=== PATIENT | female | born 1965 | race Caucasian/White ===

== ENCOUNTER 2016-10-10 09:05 | Emergency (ER) | payer BC, OTHER ==
[~2016-10-10] VITALS: Ht 175.3 cm; Wt 102.5 kg
[~2016-10-10 09:05] MED LIST: ASPEC81 PO; CHOL100010 PO; GLC/500 PO; INDSR60 PO; PRVC10 PO
[2016-10-10 09:09] VITALS: TEMP 36.9; Ht 175.3 cm; Wt 102.5 kg
[2016-10-10] MEDS ORDERED: INDSR/120 PO (09:27)
[2016-10-10] MEDS ORDERED: PROP80TA2 PO (09:38)
[2016-10-10] MEDS ORDERED: PRVC/10 PO (09:40)
[2016-10-10] MEDS ORDERED: ONDANSETRON INJ 2 MG/ML 2 ML VIAL IV STA (09:47)
[2016-10-10] MEDS ORDERED: SODIUM CHLORIDE 0.9% 1000ML 1,000 ML IV STA (09:47)
[2016-10-10 09:56] LABS: URINE APPEARANCE CLEAR (CLEAR); URINE BILIRUBIN NEG (NEG); URINE COLOR YELLOW; URINE NITRITE NEG (NEG); URINE PH 8.5 (4.5-7.5); URINE SPECIFIC GRAVITY 1.018 (1.000-1.030); UROBILINOGEN NEG (NEG); ZZUR CULT IF INDIC CLEAN CATCH NO
[2016-10-10] MEDS ORDERED: CHOL1TAB42 PO (09:59)
[2016-10-10] MEDS ORDERED: OPTIRAY 320 IV PRN (10:00)
[2016-10-10 10:04] LABS: BASO % 0.4 %; BASO ABS # 0.02 K/uL (0-0.2); COMPLETE YES; EOS % 2.9 %; HEMATOCRIT 39.7 % (37-47); IG% 0.2 %; LYMPH % 27.8 %; LYMPH ABS # 1.52 K/uL (1.2-3.4); MEAN CELL VOLUME 87.6 fL (80-100); MEAN CORPUSCULAR HEMOGLOBIN 30.2 pg (25-34); MEAN CORPUSCULAR HGB CONC 34.5 g/dl (32-36); MEAN PLATELET VOLUME 11.2 fL (7.4-10.4); MONO % 6.6 %; NEUT % 62.1 %; PLATELET COUNT 277 K/uL (130-400); RED BLOOD COUNT 4.53 M/uL (4.2-5.4); WHITE BLOOD COUNT 5.46 K/uL (4.8-10.8)
[2016-10-10 10:08] LABS: MANUAL MICROSCOPIC REQUIRED? NO; REVIEW REQ? NO
[2016-10-10 10:29] LABS: ALT/SGPT 20 U/L (12-78); AST/SGOT 9 U/L (15-37); BLOOD UREA NITROGEN 13 mg/dl (7-18); BUN/CREATININE RATIO 16.5 (10-20); CARBON DIOXIDE 28 mmol/L (21-32); CHLORIDE 110 mmol/L (98-107); CREATININE 0.81 mg/dl (0.60-1.20); GLUCOSE 105 mg/dl (70-99); POTASSIUM 4.1 mmol/L (3.5-5.1); SODIUM 144 mmol/L (136-145)
[2016-10-10 10:31] LABS: ALKALINE PHOSPHATASE 96 U/L (45-117)
--- NOTE | 2016-10-10 12:53 | DIAGNOSTIC IMAGING REPORT ---
CT OF THE ABDOMEN AND PELVIS WITH CONTRAST CLINICAL HISTORY: Right lower quadrant abdominal pain. COMPARISON STUDY: CT of the abdomen November 16, 2009 and right upper quadrant ultrasound July 05, 2010. TECHNIQUE: Following IV administration of 95 mL of Optiray-320, axial images of the abdomen and pelvis were obtained from the lung bases to the proximal femurs. Images were reviewed in the axial, sagittal, and coronal planes. IV contrast was administered without complication. Oral contrast was administered. CT DOSE: 787.11 mGy.cm FINDINGS: Lung bases are clear. There is no pneumatosis, free air or portal venous gas. The liver, spleen, adrenal glands, kidneys and pancreas are normal. There is no peripancreatic or pericholecystic infiltration. There is no hydronephrosis. The caliber and wall thickness of small and large bowel are normal. The appendix is normal. Note is made of sigmoid diverticulosis without evidence for acute diverticulitis. There is no lymphadenopathy or ascites. There is no abscess. Skeletal structures are unremarkable. IMPRESSION: No acute process within the abdomen or pelvis. Normal appendix. Electronically signed by: Tristian Willingham M.D. 10/10/2016 12:52 PM Dictated Date/Time: 10/10/2016 12:47 PM
[2016-10-10 13:50] VITALS: BP 139/79; PULSE 65; O2SAT 95
--- NOTE | 2016-10-10 17:02 | EMERGENCY ROOM VISIT NOTE ---
History First contact with patient: 09:22 Chief Complaint: ABDOMINAL PAIN Stated Complaint: RIGHT SIDE PAIN & CRAMPS WITH RIGHT BACK PAIN Nursing Triage Summary: Patient c/o right pelvic pain RLQ and "it hit me so hard I doubled over at [employer] this morning and since then it's been coming and going and now it's radiating into my right lower back". Denies n/v/d today. Diarrhea once yesterday. When she had to pee "I barely peed " History of Present Illness The patient is a 51 year old female who presents to the Emergency Room with complaints of lower abdominal cramping that is moving from side to side. The patient denies any pain radiating into the back. The patient reports that she noticed the pain yesterday afternoon area she also had a single episode of diarrhea yesterday. The patient reports that as she was getting ready to go to work, she had a severe pain that doubled her over. She reports that the pain is now improving. The patient also reports worsening pain with ambulation. She denies any history of renal calculi. She is status post bilateral oophorectomy and salpingectomy. She has also noticed mild difficulty with urination, but denies any malodor or hematuria. The patient rates her pain a 3 out of 10. Review of Systems HEENT: Denies dizziness, visual problems, hearing loss, tinnitus. Denies difficulty swallowing or oral lesions. PULMONARY: Denies cough, shortness of breath, sputum production or hemoptysis. CARDIOVASCULAR: Denies chest pain, palpitations, dyspnea on exertion, orthopnea or peripheral edema. GASTROINTESTINAL: See history of present illness. GENITOURINARY: See history of present illness. NEUROLOGIC: Denies history of epilepsy, CVA, TIA or chronic headaches. MUSCULOSKELETAL: Denies history of joint tenderness/swelling. SKIN: Denies rashes or lesions. PSYCHIATRIC: Denies history of depression or mental illness. ENDOCRINE: Denies history of diabetes or thyroid disorders. Past Medical/Surgical History Medical Problems: (1) Chronic bronchitis (2) Migraine aura, persistent, intractable Family History Diabetes mellitus Heart disease Social History Smoking Status: Never Smoker Alcohol Use: occasionally Marital Status: Occupation Status: employed Current/Historical Medications Scheduled Aspirin (Aspirin EC Low Dose), 81 MG PO QAM Cholecalciferol (Vitamin D), 1 TAB PO WK Fluticasone Prop/Salmeterol (Advair Diskus 250/50 60 Dose), 1 PUFF INH BID Metformin Hcl (Glucophage), 750 MG PO BID Pravastatin Sod (Pravastatin Sodium), 1 TAB PO DAILY@1830 Propranolol (Inderal), 80 MG PO DAILY Allergies Coded Allergies: Loratadine (Verified Allergy, Unknown, rash, 10/10/16) Metronidazole (Unverified Allergy, Unknown, UNKNOWN, 10/10/16) Montelukast (Verified Allergy, Unknown, HIVES, 10/10/16) Escitalopram (Verified Adverse Reaction, Unknown, insomnia, 10/10/16) Physical Exam Vital Signs Date Time Temp Pulse Resp B/P Pulse Ox O2 Delivery O2 Flow Rate FiO2 10/10/16 13:50 65 18 139/79 95 10/10/16 11:50 49 18 138/51 98 10/10/16 10:02 48 18 99 Room Air 10/10/16 09:09 36.9 60 20 122/57 99 Room Air Pain Rating (0-10): 2.0 Physical Exam CONSTITUTIONAL: Healthy and well nourished. Alert and oriented X 3 with positive affect. Patient does not appear in any acute distress. HEENT: Normocephalic, atraumatic. Pupils equal, round and reactive. Ears and nares are clear. No scleral icterus or conjunctival injection. OROPHARYNX: No posterior pharyngeal erythema or tonsillar hypertrophy. NECK: Full active range of motion without discomfort. RESPIRATORY: Clear to auscultation bilaterally with no wheezing, crackles, rhonchi or stridor. CARDIOVASCULAR: Regular rate and rhythm with no murmurs, rubs or gallops. GASTROINTESTINAL: Bowel sounds present in all quadrants. The patient has mild lower abdominal tenderness to palpation. Questionable positive Rovsing sign. Negative psoas/obturator sign. Mildly positive McBurney's point tenderness. Negative CVA tenderness. No rigidity, guarding or rebound. MUSCULOSKELETAL: Full range of motion of all joints without discomfort. INTEGUMENTARY: No rash or other significant dermatologic conditions noted. HEMATOLOGIC: No ecchymosis or petechiae noted. NEUROLOGIC: No focal neurologic deficits noted. Medical Decision & Procedures ER Provider Diagnostic Interpretation: Enhanced CT of the abdomen and pelvis does not show any evidence for appendicitis, diverticulitis or colitis. No obstruction noted. No abdominal free air. Radiologist report is as follows: CT OF THE ABDOMEN AND PELVIS WITH CONTRAST CLINICAL HISTORY: Right lower quadrant abdominal pain. COMPARISON STUDY: CT of the abdomen November 16, 2009 and right upper quadrant ultrasound July 05, 2010. TECHNIQUE: Following IV administration of 95 mL of Optiray-320, axial images of the abdomen and pelvis were obtained from the lung bases to the proximal femurs. Images were reviewed in the axial, sagittal, and coronal planes. IV contrast was administered without complication. Oral contrast was administered. CT DOSE: 787.11 mGy.cm FINDINGS: Lung bases are clear. There is no pneumatosis, free air or portal venous gas. The liver, spleen, adrenal glands, kidneys and pancreas are normal. There is no peripancreatic or pericholecystic infiltration. There is no hydronephrosis. The caliber and wall thickness of small and large bowel are normal. The appendix is normal. Note is made of sigmoid diverticulosis without evidence for acute diverticulitis. There is no lymphadenopathy or ascites. There is no abscess. Skeletal structures are unremarkable. IMPRESSION: No acute process within the abdomen or pelvis. Normal appendix. Laboratory Results 10/10/16 09:55 Red Blood Count 4.53, Mean Corpuscular Volume 87.6, Mean Corpuscular Hemoglobin 30.2, Mean Corpuscular Hemoglobin Concent 34.5, Mean Platelet Volume 11.2, Neutrophils (%) (Auto) 62.1, Lymphocytes (%) (Auto) 27.8, Monocytes (%) (Auto) 6.6, Eosinophils (%) (Auto) 2.9, Basophils (%) (Auto) 0.4, Neutrophils # (Auto) 3.39, Lymphocytes # (Auto) 1.52, Monocytes # (Auto) 0.36, Eosinophils # (Auto) 0.16, Basophils # (Auto) 0.02 10/10/16 09:55 Test 10/10/16 09:40 10/10/16 09:55 Urine Color YELLOW Urine Appearance CLEAR (CLEAR) Urine pH 8.5 (4.5-7.5) Urine Specific [place] 1.018 (1.000-1.030) Urine Protein NEG (NEG) Urine Glucose (UA) NEG (NEG) Urine Ketones NEG (NEG) Urine Occult Blood NEG (NEG) Urine Nitrite NEG (NEG) Urine Bilirubin NEG (NEG) Urine Urobilinogen NEG (NEG) Urine Leukocyte Esterase NEG (NEG) White Blood Count 5.46 K/uL (4.8-10.8) Red Blood Count 4.53 M/uL (4.2-5.4) Hemoglobin 13.7 g/dL (12.0-16.0) Hematocrit 39.7 % (37-47) Mean Corpuscular Volume 87.6 fL (80-100) Mean Corpuscular Hemoglobin 30.2 pg (25-34) Mean Corpuscular Hemoglobin Concent 34.5 g/dl (32-36) Platelet Count 277 K/uL (130-400) Mean Platelet Volume 11.2 fL (7.4-10.4) Neutrophils (%) (Auto) 62.1 % Lymphocytes (%) (Auto) 27.8 % Monocytes (%) (Auto) 6.6 % Eosinophils (%) (Auto) 2.9 % Basophils (%) (Auto) 0.4 % Neutrophils # (Auto) 3.39 K/uL (1.4-6.5) Lymphocytes # (Auto) 1.52 K/uL (1.2-3.4) Monocytes # (Auto) 0.36 K/uL (0.11-0.59) Eosinophils # (Auto) 0.16 K/uL (0-0.5) Basophils # (Auto) 0.02 K/uL (0-0.2) RDW Standard Deviation 42.6 fL (36.4-46.3) RDW Coefficient of Variation 13.3 % (11.5-14.5) Immature Granulocyte % (Auto) 0.2 % Immature Granulocyte # (Auto) 0.01 K/uL (0.00-0.02) Anion Gap 6.0 mmol/L (3-11) Est Creatinine Clear Calc Drug Dose 105.9 ml/min Estimated GFR () 98.2 Estimated GFR (Non- 84.7 BUN/Creatinine Ratio 16.5 (10-20) Calcium Level 9.0 mg/dl (8.5-10.1) Total Bilirubin 0.3 mg/dl (0.2-1) Direct Bilirubin < 0.1 mg/dl (0-0.2) Aspartate Amino Transf (AST/SGOT) 9 U/L (15-37) Alanine Aminotransferase (ALT/SGPT) 20 U/L (12-78) Alkaline Phosphatase 96 U/L (45-117) Total Protein 6.9 gm/dl (6.4-8.2) Albumin 3.6 gm/dl (3.4-5.0) Lipase 139 U/L (73-393) The above labs were reviewed and grossly normal. Urinalysis shows no evidence for infection. LFTs and lipase are also normal. Medications Administered Medications (Trade) Dose Ordered Sig/Julián Route Start Time Stop Time Status Last Admin Dose Admin Ondansetron HCl 4 mg 4 mg NOW STAT IV 10/10/16 09:47 10/10/16 09:48 DC 10/10/16 10:00 4 MG Sodium Chloride (Nss 1000ml) 1,000 ml @ 999 mls/hr Q1H1M STAT IV 10/10/16 09:47 10/10/16 10:47 DC 10/10/16 10:00 999 MLS/HR ED Course Patient history and physical exam were performed. Nurse's notes were reviewed. Vital signs were reviewed and were normal. IV access was established, and labs were drawn. The patient was hydrated with normal saline. She also received IV Zofran for nausea. She refused any analgesics. Labs were reviewed , showing no acute abnormalities. Urinalysis was also normal. Enhanced CT of the abdomen and pelvis also was normal, showing no evidence for appendicitis, diverticulitis or obstruction. The patient was advised of her normal CT study. She does report feeling better , and requested discharge home. The case was also discussed with Dr. Santos, ED attending physician, who agrees with workup and plan of care. The patient was encouraged to follow-up with her PCP in the next 2-3 days for reevaluation. Return to the emergency department for any progressively worsening pain extending into the right lower quadrant, persistent vomiting or developing fever. The patient was happy with plan of care, voiced understanding of all discharge instructions, and denied any significant pain at the completion of my exam. Medical Decision Patient presents to the emergency department with complaint of migrating lower abdominal pain. Her workup today is unremarkable with a normal CT scan that shows no evidence for diverticulitis, appendicitis, colitis or obstruction. Her laboratory studies shows no leukocytosis, and the patient is afebrile. Additional lab work is not suggestive of pancreatitis, cholecystitis or hepatitis. Urinalysis shows no evidence for infection. At this point I do feel that the patient is safe for outpatient follow-up with her PCP. Impression Primary Impression: Lower abdominal pain Departure Information Dispostion Home / Self-Care Forms Call Back Authorization, HOME CARE DOCUMENTATION FORM, IMPORTANT VISIT INFORMATION Patient Instructions My [facility] Additional Instructions Increase fluid intake. [place] diet for now. Tylenol 1000 mg every 6-8 hours as needed for pain. Follow-up with your family doctor if your pain persists. Return to the emergency department for any progressively worsening right lower belly pain, persistent vomiting or developing fever.
[2016-12-05] MEDS ORDERED: ALBU18002 INH (12:42)
[2016-12-05] MEDS ORDERED: ASPI81TA28 PO (12:42)
[2016-12-05] MEDS ORDERED: IPRASOL4 INH (12:42)
[2016-12-05] MEDS ORDERED: DOTERRA PO (12:42)
[2016-12-05] MEDS ORDERED: ADVIN25/60 INH (15:34)
[2016-12-06] MEDS ORDERED: TPM25 PO (10:54)
[2016-12-06] MEDS ORDERED: PROP80CA7 PO (10:54)
[2016-12-13] MEDS ORDERED: TOPI50TA24 PO (10:37)
[2016-12-13] MEDS ORDERED: PRED10TA PO (10:37)
== END 2016-10-10 13:57 | disposition home or self-care (01) ==
LOC: C.EDB 09:07
DX: R10.31 Right lower quadrant pain (principal); R11.0 Nausea; Z79.82 Long term (current) use of aspirin; Z79.84 Long term (current) use of oral hypoglycemic drugs; Z79.899 Other long term (current) drug therapy; Z88.8 Allergy status to other drugs, medicaments and biological substances; Z83.3 Family history of diabetes mellitus; Z82.49 Family history of ischemic heart disease and other diseases of the circulatory system

== ENCOUNTER → 2016-10-13 | Outpatient (CLI) | payer BC ==
[~2016-10-13] MED LIST changes: +ADVIN25/60 INH; +ALBU18002 INH; +ASPI81TA28 PO; -CHOL100010 PO; +CHOL1TAB42 PO; +DOTERRA PO; -INDSR60 PO; +INDSR80 PO; +IPRASOL4 INH; +METF750T PO; +PRAV10TA39 PO; +PRED10TA PO; +PROP60CA5 PO; +PROP80CA7 PO; +PROP80TA2 PO; +PRVC/10 PO; -PRVC10 PO; +TOPI25TA99 PO; +TOPI50TA24 PO; +TPM25 PO
[2016-10-13 13:10] LABS: BLOOD UREA NITROGEN 13 mg/dl (7-18); BUN/CREATININE RATIO 13.5 (10-20); CALCIUM 8.6 mg/dl (8.5-10.1); CARBON DIOXIDE 27 mmol/L (21-32); CHLORIDE 105 mmol/L (98-107); CREATININE 0.95 mg/dl (0.60-1.20); GLUCOSE 232 mg/dl (70-99); POTASSIUM 4.2 mmol/L (3.5-5.1); SODIUM 142 mmol/L (136-145)
== END | disposition home or self-care (01) ==
LOC: C.LABPVFM 08:38
PROVIDERS: ATTEND Family Medicine
DX: E11.9 Type 2 diabetes mellitus without complications (principal)

== ENCOUNTER → 2016-10-28 | Outpatient (CLI) | payer BC | END | disposition home or self-care (01) | LOC: C.LAB 09:50 | PROVIDERS: ATTEND Registered Nurse | DX: R19.4 Change in bowel habit (principal) ==

== ENCOUNTER → 2016-11-30 | Day surgery (SDC) | payer BC ==
[2016-11-08 12:43] VITALS: Ht 177.8 cm; Wt 102.3 kg
[~2016-11-30] VITALS: Ht 177.8 cm; Wt 102.3 kg
[~2016-11-30] MED LIST changes: -ASPEC81 PO; +ATROPINE SULFATE 0.1 MG/ML 5ML SYR IV PRN; -CHOL1TAB42 PO; +EpHEDrine SULFATE INJ 50 MG/ML AMP IV PRN; +GLYCOPYRROLATE INJ 0.2 MG/ML VIAL ONE; +LIDOCAINE HCL 2% 2 ML VIAL (20MG/ML) ONE; +MIDAZOLAM HCL 1 MG/ML 2ML VIAL ONE; +ONDANSETRON INJ 2 MG/ML 2 ML VIAL ONE; +PROPOFOL IV EMULSION 10 MG/ML 20 ML VIAL IV ONE
--- NOTE | 2016-11-30 13:01 | Endo History and Physical ---
History & Physical Date of Service: Nov 30, 2016. Chief Complaint: Abdominal pain, positive celiac test Referring Physician: Dr. Kumar History of Present Illness 51 yo CF who presents for EGD and colonoscopy secondary to abdominal pain and positive celiac test. Past Medical History Asthma, Gastrointestinal Disorder, Other Past Surgical History Hx Cardiac Surgery: No Hx Internal Defibrillator: No Hx Pacemaker: No Hx Abdominal Surgery: Yes (TYE BSO, LAPAROSCOPIES, D&C) Hx of Implantable Prosthesis: No Hx Post-Op Nausea and Vomiting: No Hx Cancer Surgery: No Hx Thoracic Surgery: No Hx Orthopedic: Yes (BIG TOE BURN SPURS X3) Hx Urinary Tract Surgery: No Family History Colon CA, Polyp Social History Smoking Status: Never Smoker Hx Substance Use: No Hx Alcohol Use: No Allergies Coded Allergies: Loratadine (Verified Allergy, Unknown, rash, 11/08/16) Metronidazole (Verified Allergy, Unknown, SKIN LAWRENCE, 11/30/16) Montelukast (Verified Allergy, Unknown, HIVES, 11/08/16) Escitalopram (Verified Adverse Reaction, Unknown, INSOMNIA, 11/08/16) Current Medications Reported Home Medications Medications Dose Route/Sig Max Daily Dose Days Date Category Proair Respiclick (Albuterol Sulfate) 108 Mcg/Act Aer 2 Puffs INH Q4H PRN 11/08/16 Reported Duoneb (Ipratropium-Albuterol) 3 Ml Nebu 1 Treatment INH Q4H PRN 11/08/16 Reported [Doterra] 1 Tab PO QAM 11/08/16 Reported Aspirin Ec (Aspirin) 81 Mg Tab 81 Mg PO QAM 11/08/16 Reported Pravastatin Sodium (Pravastatin Sod) 10 Mg Tab 1 Tab PO HS 10/10/16 Reported Inderal (Propranolol HCl) 80 Mg Tab 80 Mg PO QAM 10/10/16 Reported Glucophage (Metformin Hcl) 500 Mg Tab 750 Mg PO BID 04/08/16 Reported Advair Diskus 250/50 60 Dose (Fluticasone Prop/Salmeterol) 1 Ea Aerp 1 Puff INH BID 12/14/14 Reported Vital Signs Weight (Kilograms): 102.27 Height (Feet): 5 Height (Inches): 10 Date Time Temp Pulse Resp B/P Pulse Ox O2 Delivery O2 Flow Rate FiO2 11/30/16 11:54 37 50 18 142/72 98 Room Air Physical Exam General Appearance: WD/WN, no apparent distress Respiratory/Chest: Auscultation: breath sounds normal Cardiovascular: Heart Auscultation: RRR Abdomen: Bowel Sounds: normal Inspection & Palpation: soft, non-distended, no tenderness, guarding & rebound Assessment and Plan Assessment: 51 yo CF who presents for EGD and colonoscopy secondary to abdominal pain and positive celiac test. Plan: Proceed with EGD and colonoscopy.
--- NOTE | 2016-11-30 13:21 | GI REPORT ---
Procedure Date: 11/30/2016 12:56 PM Procedure: Upper GI endoscopy Indications: Positive celiac serologies Medicines: Monitored Anesthesia Care Complications: No immediate complications. Estimated Blood Loss: Estimated blood loss: none. Procedure: Pre-Anesthesia Assessment: - Prior to the procedure, a History and Physical was performed, and patient medications and allergies were reviewed. The patient's tolerance of previous anesthesia was also reviewed. The risks and benefits of the procedure and the sedation options and risks were discussed with the patient. All questions were answered, and informed consent was obtained. Prior Anticoagulants: The patient has taken aspirin, last dose was 5 days prior to procedure. ASA Grade Assessment: IV - A patient with severe systemic disease that is a constant threat to life. After reviewing the risks and benefits, the patient was deemed in satisfactory condition to undergo the procedure. After obtaining informed consent, the endoscope was passed under direct vision. Throughout the procedure, the patient's blood pressure, pulse, and oxygen saturations were monitored continuously. The Scope was introduced through the mouth, and advanced to the second part of duodenum. The upper GI endoscopy was accomplished without difficulty. The patient tolerated the procedure well. Findings: The esophagus was normal. Localized mild inflammation characterized by erythema was found in the gastric antrum. Biopsies were taken with a cold forceps for histology. The examined duodenum was normal. Biopsies for histology were taken with a cold forceps for evaluation of celiac disease. Impression: - Normal esophagus. - Gastritis. Biopsied. - Normal examined duodenum. Biopsied. Recommendation: - Resume previous diet. - Continue present medications. - Await pathology results. - Return to primary care physician as previously scheduled. Isaac Ramirez, DO 11/30/2016 1:20:30 PM This report has been signed electronically. Note Initiated On: 11/30/2016 12:56 PM I attest to the content of the Intraoperative Record and orders documented therein, exceptions below
--- NOTE | 2016-11-30 13:38 | GI REPORT ---
Procedure Date: 11/30/2016 12:54 PM Procedure: Colonoscopy Indications: Generalized abdominal pain Medicines: Monitored Anesthesia Care Complications: No immediate complications. Estimated Blood Loss: Estimated blood loss: none. Procedure: Pre-Anesthesia Assessment: - Prior to the procedure, a History and Physical was performed, and patient medications and allergies were reviewed. The patient's tolerance of previous anesthesia was also reviewed. The risks and benefits of the procedure and the sedation options and risks were discussed with the patient. All questions were answered, and informed consent was obtained. Prior Anticoagulants: The patient has taken aspirin, last dose was 5 days prior to procedure. ASA Grade Assessment: IV - A patient with severe systemic disease that is a constant threat to life. After reviewing the risks and benefits, the patient was deemed in satisfactory condition to undergo the procedure. After I obtained informed consent, the scope was passed under direct vision. Throughout the procedure, the patient's blood pressure, pulse, and oxygen saturations were monitored continuously. The scope was introduced through the anus and advanced to the cecum, identified by appendiceal orifice and ileocecal valve. The colonoscopy was performed without difficulty. The patient tolerated the procedure well. The quality of the bowel preparation was good. The ileocecal valve, appendiceal orifice, and rectum were photographed. Findings: Multiple small-mouthed diverticula were found in the sigmoid colon. Non-bleeding internal hemorrhoids were found during retroflexion. The hemorrhoids were small. Impression: - Diverticulosis in the sigmoid colon. - Non-bleeding internal hemorrhoids. - No specimens collected. Recommendation: - Resume previous diet. - Continue present medications. - Repeat colonoscopy in 10 years for surveillance. - Return to primary care physician as previously scheduled. Isaac Ramirez DO 11/30/2016 1:37:10 PM This report has been signed electronically. Note Initiated On: 11/30/2016 12:54 PM I attest to the content of the Intraoperative Record and orders documented therein, exceptions below
--- NOTE | 2016-11-30 13:39 | Discharge Instructions ---
Endoscopy Patient Instructions Date / Procedure(s) Performed Nov 30, 2016. Colonoscopy, EGD Allergy Information Coded Allergies: Loratadine (Verified Allergy, Unknown, rash, 11/08/16) Metronidazole (Verified Allergy, Unknown, SKIN LAWRENCE, 11/30/16) Montelukast (Verified Allergy, Unknown, HIVES, 11/08/16) Escitalopram (Verified Adverse Reaction, Unknown, INSOMNIA, 11/08/16) Discharge Date / Findings Nov 30, 2016. EGD: Gastritis s/p biopsies, Duodenal biopsies Colonoscopy: Diverticulosis, Internal hemorrhoids Medication Instructions Stopped Medication(s): Metformin and aspirin were stopped. OK to resume all medications today as prescribed Reported Home Medications Medications Dose Route/Sig Max Daily Dose Days Date Category Proair Respiclick (Albuterol Sulfate) 108 Mcg/Act Aer 2 Puffs INH Q4H PRN 11/08/16 Reported Duoneb (Ipratropium-Albuterol) 3 Ml Nebu 1 Treatment INH Q4H PRN 11/08/16 Reported [Doterra] 1 Tab PO QAM 11/08/16 Reported Aspirin Ec (Aspirin) 81 Mg Tab 81 Mg PO QAM 11/08/16 Reported Pravastatin Sodium (Pravastatin Sod) 10 Mg Tab 1 Tab PO HS 10/10/16 Reported Inderal (Propranolol HCl) 80 Mg Tab 80 Mg PO QAM 10/10/16 Reported Glucophage (Metformin Hcl) 500 Mg Tab 750 Mg PO BID 04/08/16 Reported Advair Diskus 250/50 60 Dose (Fluticasone Prop/Salmeterol) 1 Ea Aerp 1 Puff INH BID 12/14/14 Reported Provider Instructions Activity Restrictions - No exercising or heavy lifting for 24 hours. - Do not drink alcohol the day of the procedure. - Do not drive a car or operate machinery until the day after the procedure. - Do not make any important decisions or sign important papers in 24 hours after the procedure. Following Day: - Return to full activity which may include returning to work/school. Diet Start your diet with liquids and light foods (jello, soup, juice, toast). Then eat your usual diet if not nauseated. Treatment For Common After Affects For mild abdominal pain, bloating, or excessive gas: - Rest - Eat lightly - Lie on right side Follow-Up Information Follow-up with Dr. Bondalapati as scheduled Anesthesia Information What You Should Know You have had a procedure that required some medicine to reduce anxiety and discomfort. This treatment is called moderate sedation. After receiving the treatment, you may be sleepy, but you will be able to breathe on your own. The effects of the treatment may last for several hours. Follow these instructions along with Activity/Diet recommendations noted above: * Do NOT do anything where dizziness or clumsiness would be dangerous. * Rest quietly at home today, then you can be up and about tomorrow. * Have a responsible person stay with you the rest of today. * You may have had an I.V. today. If so, you may take the dressing off later today. Recommendations Call your doctor if: * Trouble breathing * Continuous vomiting for more than 24 hours * Temperature above 101 degrees * Severe abdominal pain or bloating * Pain not relieved by pain medicine ordered * There is increased drainage or redness from any incision * A large amount of rectal bleeding greater than 2-3 tablespoons. (If you had a polyp/s removed or have hemorrhoids, a small amount of blood - from the rectum is to be expected.) * You have any unanswered questions or concerns. IN THE EVENT OF A SERIOUS EMERGENCY, GO TO THE NEAREST EMERGENCY ROOM Your discharge instructions were prepared by provider Isaac Ramirez. Patient Instructions Signature Page Manasa Rodas Patient (or Guardian) Signature/Date: I have read and understand the instructions given to me by my caregivers. Caregiver/RN/Doctor Signature/Date: The above-named patient and/or guardian has received patient instructions on this date. + Original Patient Signature Page (only) stays with chart. Please make copy for patient.
--- NOTE | 2016-11-30 13:41 | Anesthesiology Progress Note ---
Anesthesia Post Op Note Date & Time Nov 30, 2016 at 13:40 Vital Signs Pain Intensity: 1 Vital Signs Past 12 Hours Date Time Temp Pulse Resp B/P Pulse Ox O2 Delivery O2 Flow Rate FiO2 11/30/16 11:54 37 50 18 142/72 98 Room Air Notes Mental Status: alert / awake / arousable, participated in evaluation Pt Amnestic to Procedure: Yes Nausea / Vomiting: adequately controlled Pain: adequately controlled Airway Patency, RR, SpO2: stable & adequate BP & HR: stable & adequate Hydration State: stable & adequate Anesthetic Complications: no major complications apparent
[2016-11-30 14:07] VITALS: BP 126/67; PULSE 65; O2SAT 98
== END | disposition home or self-care (01) ==
LOC: C.GI 10:51
PROVIDERS: ATTEND Internal Medicine
DX: R10.84 Generalized abdominal pain (principal); K29.70 Gastritis, unspecified, without bleeding; K57.30 Diverticulosis of large intestine without perforation or abscess without bleeding; K64.8 Other hemorrhoids; J45.909 Unspecified asthma, uncomplicated; Z83.71 Family history of colonic polyps

== ENCOUNTER 2016-12-05 16:06 | Inpatient (IN) | payer BC ==
[~2016-12-05] VITALS: Ht 175.3 cm; Wt 99.4 kg
[~2016-12-05 16:06] MED LIST changes: -ATROPINE SULFATE 0.1 MG/ML 5ML SYR IV PRN; -EpHEDrine SULFATE INJ 50 MG/ML AMP IV PRN; -GLYCOPYRROLATE INJ 0.2 MG/ML VIAL ONE; -INDSR80 PO; -LIDOCAINE HCL 2% 2 ML VIAL (20MG/ML) ONE; -METF750T PO; -MIDAZOLAM HCL 1 MG/ML 2ML VIAL ONE; -ONDANSETRON INJ 2 MG/ML 2 ML VIAL ONE; -PRAV10TA39 PO; -PRED10TA PO; -PROP60CA5 PO; -PROP80CA7 PO; -PROPOFOL IV EMULSION 10 MG/ML 20 ML VIAL IV ONE; -TOPI25TA99 PO; -TOPI50TA24 PO; -TPM25 PO
[2016-12-05] MEDS ORDERED: PRAV10TA39 PO (16:58)
[2016-12-05] MEDS ORDERED: INDSR80 PO (16:58)
[2016-12-05] MEDS ORDERED: METF750T PO (16:58)
[2016-12-05] MEDS ORDERED: ONDANSETRON INJ 2 MG/ML 2 ML VIAL IV PRN ×2 (17:00→19:45)
--- NOTE | 2016-12-05 17:11 | DIAGNOSTIC IMAGING REPORT ---
HEAD CT NONCONTRAST CT DOSE: 601.98 mGy.cm HISTORY: Mental status change weakness TECHNIQUE: Multiaxial CT images of the head were performed without the use of intravenous contrast. Comparison: 04/08/2016 Findings: The paranasal sinuses and mastoid air cells are clear. The calvarium and skull base are intact. The ventricles and sulci are within normal limits. There is no mass, hematoma, midline shift, or acute infarct. Impression: No acute intracranial abnormality. Electronically signed by: Maximiliano Powell M.D. 12/05/2016 5:08 PM Dictated Date/Time: 12/05/2016 5:08 PM
[2016-12-05 17:13] LABS: BASO % 0.5 %; BASO ABS # 0.03 K/uL (0-0.2); COMPLETE YES; IG% 0.2 %; LYMPH % 28.4 %; LYMPH ABS # 1.86 K/uL (1.2-3.4); MEAN CELL VOLUME 89.4 fL (80-100); MEAN CORPUSCULAR HEMOGLOBIN 30.9 pg (25-34); MEAN CORPUSCULAR HGB CONC 34.5 g/dl (32-36); MEAN PLATELET VOLUME 11.8 fL (7.4-10.4); MONO % 6.7 %; NEUT % 61.2 %; PLATELET COUNT 296 K/uL (130-400); WHITE BLOOD COUNT 6.56 K/uL (4.8-10.8)
[2016-12-05 17:21] LABS: ALT/SGPT 19 U/L (12-78); AST/SGOT 6 U/L (15-37); BLOOD UREA NITROGEN 13 mg/dl (7-18); BUN/CREATININE RATIO 13.7 (10-20); CALCIUM 9.4 mg/dl (8.5-10.1); CARBON DIOXIDE 31 mmol/L (21-32); CHLORIDE 106 mmol/L (98-107); CREATININE 0.95 mg/dl (0.60-1.20); GLUCOSE 107 mg/dl (70-99); POTASSIUM 3.9 mmol/L (3.5-5.1); SODIUM 142 mmol/L (136-145)
--- NOTE | 2016-12-05 17:28 | DIAGNOSTIC IMAGING REPORT ---
CHEST 2 VIEWS ROUTINE CLINICAL HISTORY: weakness dyspnea COMPARISON STUDY: 04/08/2016 FINDINGS: The bones soft tissues and hemidiaphragms are normal. The cardiomediastinal silhouette is normal. The lungs are clear. The pulmonary vasculature is normal. IMPRESSION: Negative chest. Electronically signed by: Maximiliano Powell M.D. 12/05/2016 5:26 PM Dictated Date/Time: 12/05/2016 5:26 PM
[2016-12-05 17:32] LABS: ALB/GLOB RATIO 1.1 (0.9-2); ALKALINE PHOSPHATASE 111 U/L (45-117)
--- NOTE | 2016-12-05 17:36 | EMERGENCY ROOM VISIT NOTE ---
History Report prepared by Odin: June Arellano Under the Supervision of: Dr. Shaheed Montero M.D. First contact with patient: 16:38 Chief Complaint: NEURO SYMPTOMS Stated Complaint: DIZZY, EAR PAIN, LETHARGIC Nursing Triage Summary: last pm pt had onset of headache top center of head. had full felling in ears, pt states brief aphasia. also dizziness when ambulating and slurred speech. stated she was also bradcardic. mejia pt got home still felt like something not rigt. today wet to pcp for ? ear infection. pt had an EKG which was bradcardic. pt cont to slur words and have some difficuty word finding. currently pt denies h/a, states still dizzy with ambulation.slight right sided drift. History of Present Illness The patient is a 51 year old female who presents to the Emergency Room with complaints of constant neuro symptoms that started last night around 1999. The patient was sent to the ED from her PCP due to concern for bradycardia and her neuro symptoms. The patient states that when she was leaving the [facility] last night , she had to climb a bunch of steps to get to the top concourse and when she got to the top, she experienced shortness of breath. She adds that she ran to the car because it was raining and she again experienced shortness of breath when she got to the car. The patient also developed a headache when she got into the car. When the patient got home she went to find aspirin, which she states is typically easy for her, but she pulled out her metformin bottle before realizing that it wasn't aspirin. She states that she needed her to find the aspirin for her. The patient went to bed and woke up in the middle of the night to use the bathroom. She states that she fell sideways on her way to the bathroom but made it back to bed. When she woke up this morning, she was still dizzy. She was also still experiencing shortness of breath and fatigue whenever she tried to do anything. The patient denies any headache currently and states that she just feels fatigued with mild shortness of breath. The patient is experiencing head and right hand tremors today. She is also experiencing nausea and right ear "fullness", which started last night. She denies any urinary symptoms. The patient was evaluated in March for similar symptoms and they were unable to determine if her symptoms were a result of a TIA or a complex migraine. The most recent CT of her head was in March. The patient's adds that the patient is on 80 mg of propranolol for complex migraines. She states that she has a history of complex migraines that are typically accompanied by right-sided weakness, dizziness, and tremors. She states that she used to be on 120 mg but her senior revenue accountant recommended reducing it so her neurologist reduced it to 80 mg. The patient states that she has lost 22 lbs since last February so she thinks that the propranolol dose may be too high for her now which is causing her to experience bradycardia. Additionally, the patient states that she had an endoscopy and colonoscopy done 5 days ago to rule out Celiac's disease because she had a positive blood test for it. She has not gotten the results of those studies yet. Source of History: patient, spouse/significant other () Onset: last night around 1999 Position: head Quality: other (neuro symptoms) Timing: constant Associated Symptoms: + SOB, + fatigue, + headache, + nausea, + weakness ( right-sided), No urinary symptoms Note: dizziness, right ear "fullness" Review of Systems All systems have been listed, reviewed, and are negative other than those previously mentioned. Please see Additional Medical History Sheet. Past Medical & Surgical Medical Problems: (1) Asthma (2) Bradycardia (3) Chronic bronchitis (4) Diabetes (5) Dizzy (6) Migraine aura, persistent, intractable Surgical Problems: (1) History of total hysterectomy with bilateral salpingo-oophorectomy (BSO) Family History Diabetes mellitus Heart disease Social History Smoking Status: Never Smoker Alcohol Use: occasionally Marital Status: Occupation Status: employed Current/Historical Medications Scheduled Aspirin (Aspirin Ec), 81 MG PO QAM Fluticasone Prop/Salmeterol (Advair Diskus 250/50 60 Dose), 1 PUFF INH BID Metformin Hcl (Glucophage Er), 750 MG PO BID Pravastatin Sodium (Pravastatin Sodium), 10 MG PO HS Propranolol HCl (Propranolol HCl ER), 80 MG PO QAM [Doterra], 1 TAB PO QAM Scheduled PRN Albuterol Sulfate (Proair Respiclick), 2 PUFFS INH Q4H PRN for SOB/Wheezing Ipratropium-Albuterol (Duoneb), 1 TREATMENT INH Q4H PRN for SOB/Wheezing Allergies Coded Allergies: Loratadine (Verified Allergy, Unknown, rash, 11/08/16) Metronidazole (Verified Allergy, Unknown, SKIN LAWRENCE, 11/30/16) Montelukast (Verified Allergy, Unknown, HIVES, 11/08/16) Escitalopram (Verified Adverse Reaction, Unknown, INSOMNIA, 11/08/16) Physical Exam Vital Signs Date Time Temp Pulse Resp B/P Pulse Ox O2 Delivery O2 Flow Rate FiO2 12/05/16 20:11 52 15 98 12/05/16 19:41 60 14 96 12/05/16 19:11 53 20 97 12/05/16 18:41 51 15 98 12/05/16 18:38 48 120/71 48 138/86 50 143/88 12/05/16 18:29 143/88 12/05/16 18:28 138/86 12/05/16 18:27 120/71 12/05/16 18:24 120/74 12/05/16 18:11 57 19 97 12/05/16 18:06 62 15 129/70 93 12/05/16 17:36 51 15 95 12/05/16 17:30 46 19 129/72 100 Room Air 12/05/16 17:30 129/72 12/05/16 16:36 56 94 12/05/16 16:25 100 Room Air 12/05/16 16:22 36.6 48 19 171/96 100 Room Air 12/05/16 16:20 50 12/05/16 16:17 171/96 Physical Exam GENERAL: Patient awake, alert, oriented x 3. Patient follows commands. Patient does not appear toxic. Patient is adequately hydrated and well- nourished. SKIN: No erythema, pallor, cyanosis or rash HEENT: Normal head, pupils equal, reactive to light and accommodation. Ears have bilateral cerumen impaction. Oral cavity and posterior pharynx appear normal. Neck: Without adenopathy, no neck vein distention. LUNGS: Clear to auscultation. No wheezes, no rales, no rhonchi. HEART: Slow rate with a regular rhythm. No murmurs. No gallops. No rubs ABDOMEN: No masses, no rebound, no hepatomegaly or splenomegaly. EXTREMITIES: No signs of trauma. No pedal or pretibial edema. No calf or thigh tenderness. NEUROLOGIC: Cranial nerves II-XII within normal limits. No gross motor sensory function deficits. No focal deficits. Medical Decision & Procedures ER Provider Diagnostic Interpretation: Radiology results as stated below per my review and radiologist interpretation: CHEST 2 VIEWS ROUTINE IMPRESSION: Negative chest. Electronically signed by: Maximiliano Powell M.D. 12/05/2016 5:26 PM Dictated Date/Time: 12/05/2016 5:[address] NONCONTRAST Impression: No acute intracranial abnormality. Electronically signed by: Maximiliano Powell M.D. 12/05/2016 5:08 PM Dictated Date/Time: 12/05/2016 5:08 PM Laboratory Results 12/05/16 16:20 Red Blood Count 4.70, Mean Corpuscular Volume 89.4, Mean Corpuscular Hemoglobin 30.9, Mean Corpuscular Hemoglobin Concent 34.5, Mean Platelet Volume 11.8, Neutrophils (%) (Auto) 61.2, Lymphocytes (%) (Auto) 28.4, Monocytes (%) (Auto) 6.7, Eosinophils (%) (Auto) 3.0, Basophils (%) (Auto) 0.5, Neutrophils # (Auto) 4.02, Lymphocytes # (Auto) 1.86, Monocytes # (Auto) 0.44, Eosinophils # (Auto) 0.20, Basophils # (Auto) 0.03 12/05/16 16:20 Test 12/05/16 16:20 White Blood Count 6.56 K/uL (4.8-10.8) Red Blood Count 4.70 M/uL (4.2-5.4) Hemoglobin 14.5 g/dL (12.0-16.0) Hematocrit 42.0 % (37-47) Mean Corpuscular Volume 89.4 fL (80-100) Mean Corpuscular Hemoglobin 30.9 pg (25-34) Mean Corpuscular Hemoglobin Concent 34.5 g/dl (32-36) Platelet Count 296 K/uL (130-400) Mean Platelet Volume 11.8 fL (7.4-10.4) Neutrophils (%) (Auto) 61.2 % Lymphocytes (%) (Auto) 28.4 % Monocytes (%) (Auto) 6.7 % Eosinophils (%) (Auto) 3.0 % Basophils (%) (Auto) 0.5 % Neutrophils # (Auto) 4.02 K/uL (1.4-6.5) Lymphocytes # (Auto) 1.86 K/uL (1.2-3.4) Monocytes # (Auto) 0.44 K/uL (0.11-0.59) Eosinophils # (Auto) 0.20 K/uL (0-0.5) Basophils # (Auto) 0.03 K/uL (0-0.2) RDW Standard Deviation 42.9 fL (36.4-46.3) RDW Coefficient of Variation 13.1 % (11.5-14.5) Immature Granulocyte % (Auto) 0.2 % Immature Granulocyte # (Auto) 0.01 K/uL (0.00-0.02) Anion Gap 5.0 mmol/L (3-11) Est Creatinine Clear Calc Drug Dose 92.1 ml/min Estimated GFR () 80.9 Estimated GFR (Non- 69.8 BUN/Creatinine Ratio 13.7 (10-20) Calcium Level 9.4 mg/dl (8.5-10.1) Total Bilirubin 0.3 mg/dl (0.2-1) Aspartate Amino Transf (AST/SGOT) 6 U/L (15-37) Alanine Aminotransferase (ALT/SGPT) 19 U/L (12-78) Alkaline Phosphatase 111 U/L (45-117) Troponin I < 0.015 ng/ml (0-0.045) Total Protein 7.7 gm/dl (6.4-8.2) Albumin 4.0 gm/dl (3.4-5.0) Globulin 3.7 gm/dl (2.5-4.0) Albumin/Globulin Ratio 1.1 (0.9-2) Thyroid Stimulating Hormone (TSH) 1.450 uIu/ml (0.300-4.500) Laboratory results as stated above per my review. Medications Administered Medications (Trade) Dose Ordered Sig/Julián Route Start Time Stop Time Status Last Admin Dose Admin Ondansetron HCl (Zofran Inj) 4 mg PRN PRN IV 12/05/16 17:00 12/05/16 19:53 DC 12/05/16 17:28 4 MG ECG Indication: weakness Rate (beats per minute): 43 Rhythm: sinus bradycardia Findings: no acute ischemic change, no ectopy ED Course 163: Past medical records reviewed. The patient was evaluated in room B8. A complete history and physical examination was performed. 1699: Ordered Zofran Inj 4 mg IV 1855: Upon reevaluation, the patient is resting comfortably. The patient is still not able to ambulate normally. I discussed today's findings with her. She verbalized agreement of the treatment plan. The patient will be evaluated for further management. 1938: Discussed the patient's case with Dr. Emmy GASCA. The patient will be evaluated for further management. Medical Decision Nurses notes reviewed. Medical history sheet reviewed. Differential diagnosis includes but is not limited to: drug induced bradycardia, vestibular neuronitis , labyrinthitis, benign positional vertigo, anemia, metabolic disorder. Patient is here with weakness on her right side, vertigo and a mild headache. The headache was worse before. The patient is bradycardic. The patient has been on high dose of propranolol for complex migraine headaches. Examination today reveals bilateral cerumen impactions. She does not have nystagmus. Heart is slow and regular. Multiple labs, EKG and imaging were obtained. EKG reveals a bradycardia but no acute changes. There are no signs of bleed on CT imaging. The patient has a staggering gait which is new. In light of the above the patient will require further evaluation in the hospital specifically to care for her bradycardia and neurologic findings. Most likely this represents a complex migraine but she may have a TIA/CVA. Most likely the bradycardia is secondary to propranolol. The patient does not meet criteria for TPA due to her last well-known time being so long ago plus her symptoms are more likely secondary to migraine and not a CVA . Consults Time Called: 1900 Consulting Physician: Dr. Emmy GASCA Returned Call: 1938 Discussed the patient's case with Dr. Emmy GASCA. The patient will be evaluated for further management. Impression Primary Impression: Bradycardia Additional Impressions: Migraine variant Impacted cerumen of both ears Scribe Attestation The scribe's documentation has been prepared under my direction and personally reviewed by me in its entirety. I confirm that the note above accurately reflects all work, treatment, procedures, and medical decision making performed by me. Departure Information Dispostion Being Evaluated By Hospitalist Referrals Mark Kumar M.D. (PCP) Patient Instructions My [facility] Problem Qualifiers
[2016-12-05] MEDS ORDERED: ALBUT/IPRATROP 3MG/0.5MG NEB 3 ML VIAL INH PRN (19:45)
[2016-12-05] MEDS ORDERED: MAGNESIUM HYDROXIDE SUSP 30 ML UDC PO PRN (19:45)
[2016-12-05] MEDS ORDERED: NITROGLYCERIN 0.4 MG SL PER TAB CHARGE SL PRN (19:45)
[2016-12-05] MEDS ORDERED: ALUMINUM/MAGNESIUM/SIMETH (MAALOX MAX) 30 ML UDC PO PRN (19:45)
[2016-12-05] MEDS ORDERED: POLYETHYLENE (MIRALAX) 17 GM PACK PO PRN (19:45)
[2016-12-05 20:50] LABS: URINE APPEARANCE CLEAR (CLEAR); URINE BILIRUBIN NEG (NEG); URINE COLOR YELLOW; URINE NITRITE NEG (NEG); URINE PH 6.5 (4.5-7.5); URINE SPECIFIC GRAVITY 1.006 (1.000-1.030); UROBILINOGEN NEG (NEG); ZZUR CULT IF INDIC CLEAN CATCH NO
[2016-12-05 20:54] LABS: MANUAL MICROSCOPIC REQUIRED? NO; REVIEW REQ? NO
[2016-12-05 21:00] VITALS: BP 125/66; PULSE 57; TEMP 37.2; O2SAT 98; Ht 175.3 cm; Wt 99.4 kg
[2016-12-05] MEDS ORDERED: ASPIRIN 81 MG CHEW PO STA (21:08)
--- NOTE | 2016-12-05 21:10 | History and Physical ---
History & Physical Date & Time of Service: Dec 05, 2016 at 20:07 Chief Complaint: Dizzy, Ear Pain, Lethargic Primary Care Physician: Mark Kumar M.D. History of Present Illness Source: patient 51 y/o F w/Hx complex migraines, DM, chronic CP, Chronic bronchitis, HPL. Pt developed dizziness, weakness and exertional dyspnea the previous evening. She had gotten out of bed at 10p to use the bathroom and became weak on her R side. This was followed by a unilateral headache. She was able to get back to bed alone despite R sided weakness. She was admitted with similar symptoms 04/10 which were ultimately attributed to a complex migraine following a CVA workup. On arrival to the ER the pts HR was persistently in the low 40s. She takes Propranolol at a relatively high dose as migraine prophylaxis although she recently reduced her dose. The pt states that she had an endoscopy one week prior to evaluate for celiac disease and was told her HR was very low at that time. She currently denies any CP and does not have SOB at rest. Her R sided weakness has persisted for close to 24 hours although it has substantially improved. She denies fevers, nausea/vomiting, diarrhea or dysuria. Past Medical/Surgical History 1) Chronic Bronchitis - this is apparently due to an immune deficiency which makes her prone to URIs - she was recently diagnosed but does not recall details. 2) Complex migraines - history of hemiplegia 3) Borderline DM 4) Chronic - occasional CP - no history of associated CA 5) Hyperlipidemia Family History Diabetes mellitus Heart disease Mother with Celiac disease - otherwise noncontributory Social History Smoking Status: Never Smoker Alcohol Use: socially Marital Status: Housing status: lives with family Occupational Status: employed Immunizations History of Influenza Vaccine: Yes Influenza Vaccine Date: Jun 06, 2011 History of Tetanus Vaccine?: Yes History of Pneumococcal: Yes Pneumococcal Date: Nov 29, 2010 History of Hepatitis B Vaccine: No Multi-Drug Resistant Organisms History of MDRO: No Allergies Coded Allergies: Loratadine (Verified Allergy, Unknown, rash, 11/08/16) Metronidazole (Verified Allergy, Unknown, SKIN LAWRENCE, 11/30/16) Montelukast (Verified Allergy, Unknown, HIVES, 11/08/16) Escitalopram (Verified Adverse Reaction, Unknown, INSOMNIA, 11/08/16) Home Medications Scheduled Aspirin (Aspirin Ec), 81 MG PO QAM Fluticasone Prop/Salmeterol (Advair Diskus 250/50 60 Dose), 1 PUFF INH BID Metformin Hcl (Glucophage Er), 750 MG PO BID Pravastatin Sodium (Pravastatin Sodium), 10 MG PO HS Propranolol HCl (Propranolol HCl ER), 80 MG PO QAM [Doterra], 1 TAB PO QAM Scheduled PRN Albuterol Sulfate (Proair Respiclick), 2 PUFFS INH Q4H PRN for SOB/Wheezing Ipratropium-Albuterol (Duoneb), 1 TREATMENT INH Q4H PRN for SOB/Wheezing Review of Systems Constitutional: No chills, No fever, No sweats Eyes: No eye pain, No worsening of vision ENT: No hearing loss, No nasal symptoms, No unusual epistaxis Respiratory: + dyspnea on exertion, No cough, No sputum, No wheezing Cardiovascular: No PND, No chest pain, No orthopnea Abdomen: No nausea, No pain, No vomiting Musculoskeletal: No joint pain, No muscle pain Genitourinary - Female: No dysuria, No hematuria, No urinary frequency, No urinary incontinence, No urinary retention, No urinary urgency Neurologic: + weakness (R sided as above), No memory loss, No paralysis Psychiatric: No depression symptoms Endocrine: + fatigue Hematologic / Lymphatic: No abnormal bleeding/bruising Integumentary: No rash Allergic / Immunologic: No environmental allergies Physical Exam Vital Signs Date Time Temp Pulse Resp B/P Pulse Ox O2 Delivery O2 Flow Rate FiO2 12/05/16 18:38 48 120/71 48 138/86 50 143/88 12/05/16 18:06 62 15 129/70 93 12/05/16 17:36 51 15 95 12/05/16 17:30 46 19 129/72 100 Room Air 12/05/16 17:30 129/72 12/05/16 16:36 56 94 12/05/16 16:25 100 Room Air 12/05/16 16:22 36.6 48 19 171/96 100 Room Air 12/05/16 16:20 50 12/05/16 16:17 171/96 General Appearance: WD/WN, no apparent distress Head: normocephalic, atraumatic Eyes: normal inspection, PERRL, EOMI ENT: normal ENT inspection, pharynx normal Neck: supple, no JVD Respiratory/Chest: chest non-tender, lungs clear, normal breath sounds, no respiratory distress, no accessory muscle use Cardiovascular: no edema, no gallop, no JVD, no murmur, normal peripheral pulses, + bradycardia Abdomen/GI: normal bowel sounds, non tender, soft Back: normal inspection, no CVA tenderness, no muscle spasm, normal range of motion Extremities/Musculoskelatal: normal inspection, no calf tenderness, normal capillary refill, no pedal edema, normal range of motion Neurologic/Psych: attendant self service store II-XII nml as tested, no motor/sensory deficits, alert, normal mood/affect, normal reflexes, oriented x 3, + pertinent finding ( [place] + , pt otherwise able to walk indeoendently and does not have any unilateral defecits on admission) Skin: normal color, warm/dry, + pertinent finding (Erythema of the nose and malar area) Diagnostics Laboratory Results Results Past 24 Hours Test 12/05/16 16:20 Range/Units White Blood Count 6.56 4.8-10.8 K/uL Red Blood Count 4.70 4.2-5.4 M/uL Hemoglobin 14.5 12.0-16.0 g/dL Hematocrit 42.0 37-47 % Mean Corpuscular Volume 89.4 80-100 fL Mean Corpuscular Hemoglobin 30.9 25-34 pg Mean Corpuscular Hemoglobin Concent 34.5 32-36 g/dl Platelet Count 296 130-400 K/uL Mean Platelet Volume 11.8 7.4-10.4 fL Neutrophils (%) (Auto) 61.2 % Lymphocytes (%) (Auto) 28.4 % Monocytes (%) (Auto) 6.7 % Eosinophils (%) (Auto) 3.0 % Basophils (%) (Auto) 0.5 % Neutrophils # (Auto) 4.02 1.4-6.5 K/uL Lymphocytes # (Auto) 1.86 1.2-3.4 K/uL Monocytes # (Auto) 0.44 0.11-0.59 K/uL Eosinophils # (Auto) 0.20 0-0.5 K/uL Basophils # (Auto) 0.03 0-0.2 K/uL RDW Standard Deviation 42.9 36.4-46.3 fL RDW Coefficient of Variation 13.1 11.5-14.5 % Immature Granulocyte % (Auto) 0.2 % Immature Granulocyte # (Auto) 0.01 0.00-0.02 K/uL Sodium Level 142 136-145 mmol/L Potassium Level 3.9 3.5-5.1 mmol/L Chloride Level 106 98-107 mmol/L Carbon Dioxide Level 31 21-32 mmol/L Anion Gap 5.0 3-11 mmol/L Blood Urea Nitrogen 13 7-18 mg/dl Creatinine 0.95 0.60-1.20 mg/dl Est Creatinine Clear Calc Drug Dose 92.1 ml/min Estimated GFR () 80.9 Estimated GFR (Non- 69.8 BUN/Creatinine Ratio 13.7 10-20 Random Glucose 107 70-99 mg/dl Calcium Level 9.4 8.5-10.1 mg/dl Total Bilirubin 0.3 0.2-1 mg/dl Aspartate Amino Transf (AST/SGOT) 6 15-37 U/L Alanine Aminotransferase (ALT/SGPT) 19 12-78 U/L Alkaline Phosphatase 111 45-117 U/L Troponin I < 0.015 0-0.045 ng/ml Total Protein 7.7 6.4-8.2 gm/dl Albumin 4.0 3.4-5.0 gm/dl Globulin 3.7 2.5-4.0 gm/dl Albumin/Globulin Ratio 1.1 0.9-2 Thyroid Stimulating Hormone (TSH) 1.450 0.300-4.500 uIu/ml Diagnostic Radiology CT head negative EKG Bradycardia at 43BPM - no evidence of ischemia Impression Assessment and Plan 51 y/o F w/Hx complex migraines, DM, chronic CP, Chronic bronchitis, HPL. Pt developed dizziness, weakness and exertional dyspnea the previous evening. She had gotten out of bed at 10p to use the bathroom and became weak on her R side. This was followed by a unilateral headache. She was able to get back to bed alone despite R sided weakness. She was admitted with similar symptoms 04/10 which were ultimately attributed to a complex migraine following a CVA workup. On arrival to the ER the pts HR was persistently in the low 40s. She takes Propranolol at a relatively high dose as migraine prophylaxis although she recently reduced her dose. Her R sided weakness has substantially improved at the time of admission. 1) Dizzy, weak, exertional dyspnea - possibly related to bradycardia. The pt will be monitored on telemetry and we will hold her Propranolol. If her symptoms resolve with an increase in her HR we could discern that this was the cause. This would not however negate the utility of further cardiac testing as she may then have some underlying disease. She is 24 hours following the onset of symptoms so that further cardiac enzyme measurements are unlikely to be of benefit. She was provided with ASA and takes a Statin daily. 2) R sided weakness - headache - resolving - symptoms are consistent with her complex migraines, however there was some concern that she may have been having a TIA during a similar admission 04/10. As her symptoms have persisted for 24 hours, we will increase her ASA dose, place her on neurochecks and obtain an MRI. Neurology can be consulted based on test results. 3) Chronic bronchitis - cont inhalers - no current exacerbation 4) DM - Metformin held - placed on SS Total time for this admit including review of labs, meds, records, EKG and imaging - discussion with ER MD and pt - 36 min Level of Care Telemetry Resuscitation Status FULL RESUSCITATION VTE Prophylaxis VTE Risk Assessment Done? Y/N: Yes Risk Level: Low Given or contraindicated: Unfractionated heparin SQ
[2016-12-05] MEDS ORDERED: PRAVASTATIN SOD 10 MG TAB PO SCH (21:30)
[2016-12-05] MEDS: FLUTICASONE/SALMETEROL 250/50 (ADVAIR) 14 PUFF/1 INHALER INH SCH (21:31)
--- NOTE | 2016-12-05 22:39 | DIAGNOSTIC IMAGING REPORT ---
Brain MRI WITHOUT CONTRAST HISTORY: Mental status change cava TECHNIQUE: Multiplanar multisequence MRI of the brain was performed without the use of contrast. COMPARISON STUDY: 04/08/2016 FINDINGS: There are no areas of restricted diffusion to suggest acute infarction. The midline structures are intact. The paranasal sinuses are clear. The mastoid air cells are clear. The ventricles and sulci are within normal limits for age. There is no mass, hematoma, midline shift. The major vascular flow-voids at the skull base are well maintained. IMPRESSION: No acute intracranial abnormality. No change from the prior study. Electronically signed by: Maximiliano Powell M.D. 12/05/2016 10:37 PM Dictated Date/Time: 12/05/2016 10:33 PM
[2016-12-05 23:25] VITALS: BP 106/70; PULSE 49; TEMP 36.4; O2SAT 96
[2016-12-06 04:47] VITALS: BP 111/69; PULSE 57; TEMP 36.4; O2SAT 99
[2016-12-06] MEDS: ACETAMINOPHEN 325 MG TAB PO PRN ×2 (06:07→10:26)
[2016-12-06] MEDS ORDERED: INSULIN ASPART 100 UNITS/ML 3 ML PEN SC SCH (06:30)
[2016-12-06] MEDS ORDERED: HEPARIN SOD 5000 UNIT/0.5 ML CARP SQ SCH (06:30)
[2016-12-06 07:42] VITALS: BP 100/63; PULSE 48; TEMP 36.5; O2SAT 98
[2016-12-06] MEDS: FLUTICASONE/SALMETEROL 250/50 (ADVAIR) 14 PUFF/1 INHALER INH SCH (08:31)
[2016-12-06] MEDS ORDERED: ASPIRIN 81 MG ECTAB PO SCH (09:00)
[2016-12-06] MEDS ORDERED: ASPIRIN 325 MG ECTAB PO SCH (09:00)
--- NOTE | 2016-12-06 10:16 | Neurology Consultation ---
Neurology Consultation Date of Consultation: Dec 06, 2016. Attending Physician: Laurel Pena MD Primary Care Physician: Mark Kumar M.D. 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 The headache was primarily frontal and associated with some nausea and light sensitivity. These symptoms improved modestly over the following 1-2 days although intensified yesterday afternoon and were associated with word finding difficulty, slurred speech, and right-sided weakness. She reports that her headache is primarily frontal at this time. She complains of poor appetite, mild nausea, and mild photosensitivity. Her speech difficulty is largely improved. The right-sided weakness is also significantly improved. He complains of feeling extremely fatigued. Past medical history is significant for complex migraine with very similar episodes in the past. The patient was seen by Dr. Wilma Swan during an admission to the hospital in June 2016 for a probable complex migraine episode and has followed with her in the outpatient clinic. The patient is currently prescribed propranolol for migraine prevention as well as daily low-dose aspirin.. The dosage of this medication was reduced several months ago due to bradycardia. The patient indicates that she has previously followed at [facility] for her migraines and had been prescribed Depakote for many years during which time her migraines were stable. The medication was eventually discontinued in favor of a trial of propranolol for reasons that are uncertain at this time. The patient does not recall any particular side effects or allergy to Depakote although weight gain may have been an issue. The patient does report that she has lost about 20 pounds over the past few months. Electrocardiogram has revealed sinus bradycardia, 43 bpm Past Medical/Surgical History Medical Problems: (1) CVA (cerebral vascular accident) Status: Acute (2) Impacted cerumen of both ears Status: Acute (3) Left sided chest pain Status: Acute (4) Lower abdominal pain Status: Acute (5) Migraine variant Status: Acute (6) Right sided weakness Status: Acute Family History The patient indicates that her father has a history of migraine although it is unclear if he experiences hemiplegic migraine or complex migraine. Father: heart disease, diabetes, pertinent history of Social History Smoking Status: Never smoker Alcohol Use: socially Marital Status: Occupation Status: employed Allergies Coded Allergies: Loratadine (Verified Allergy, Unknown, rash, 11/08/16) Metronidazole (Verified Allergy, Unknown, SKIN [place]WRENCE, 11/30/16) Montelukast (Verified Allergy, Unknown, HIVES, 11/08/16) Escitalopram (Verified Adverse Reaction, Unknown, INSOMNIA, 11/08/16) Current Inpatient Medications Current Inpatient Medications Medications (Trade) Dose Ordered Sig/Julián Route Start Time Stop Time Status Last Admin Dose Admin Salmeterol Xinafoate/ Fluticasone (Advair Diskus 250/50 Inh) 1 puff BID INH 12/05/16 21:30 01/04/17 21:29 12/06/16 08:31 1 PUFF Albuterol/ Ipratropium (Duoneb) 1 ml Q6H PRN INH 12/05/16 19:45 01/04/17 19:44 Pravastatin Sodium (Pravachol Tab) 10 mg HS PO 12/05/16 21:30 01/04/17 21:29 12/05/16 21:31 10 MG Heparin Sodium (Porcine) (Heparin Sq 5000 Unit/0.5ml) 5,000 unit Q8 SQ 12/06/16 06:30 01/05/17 06:29 12/06/16 06:26 5,000 UNIT Acetaminophen (Tylenol Tab) 650 mg Q4H PRN PO 12/05/16 19:45 01/04/17 19:44 12/06/16 06:07 650 MG Al Hydrox/Mg Hydrox/Simethicone (Maalox Max Susp) 15 ml Q4H PRN PO 12/05/16 19:45 01/04/17 19:44 Magnesium Hydroxide (Milk Of Magnesia Susp) 30 ml Q12H PRN PO 12/05/16 19:45 01/04/17 19:44 Ondansetron HCl (Zofran Inj) 4 mg Q6H PRN IV 12/05/16 19:45 01/04/17 19:44 Nitroglycerin (Nitrostat Tab) 0.4 mg UD PRN SL 12/05/16 19:45 01/04/17 19:44 Aspirin (Ecotrin Tab) 325 mg QAM PO 12/06/16 09:00 01/05/17 08:59 12/06/16 08:31 325 MG Polyethylene (Miralax Powder Packet) 17 gm DAILY PRN PO 12/05/16 19:45 01/04/17 19:44 Insulin Aspart (novoLOG ASPART) SLIDING SCALE G... ACHS SC 12/06/16 06:30 01/05/17 06:29 Review of Systems The patient denies fever, chills, change in vision, change in hearing, chest pain, palpitations, shortness of breath, coughing, wheezing, abdominal pain, diarrhea, dysuria, incontinence, myalgia, arthralgia, rash, skin lesion, swollen glands, easy bruising or bleeding, depression or anxiety. A full 10 point review of systems was obtained from this patient with pertinent positives and negatives outlined in the history of present illness and otherwise listed above. Physical Exam Vital Signs (Past 24 Hrs): Date Time Temp Pulse Resp B/P Pulse Ox O2 Delivery O2 Flow Rate FiO2 12/06/16 07:42 36.5 48 16 100/63 98 Room Air 12/06/16 04:47 36.4 57 18 111/69 99 12/06/16 04:00 Room Air 12/06/16 00:00 Room Air 12/05/16 23:25 36.4 49 18 106/70 96 Room Air 12/05/16 21:00 37.2 57 16 125/66 98 Room Air 12/05/16 20:11 52 15 98 12/05/16 19:41 60 14 96 12/05/16 19:11 53 20 97 12/05/16 18:41 51 15 98 12/05/16 18:38 48 120/71 48 138/86 50 143/88 12/05/16 18:29 143/88 12/05/16 18:28 138/86 12/05/16 18:27 120/71 12/05/16 18:24 120/74 12/05/16 18:11 57 19 97 12/05/16 18:06 62 15 129/70 93 12/05/16 17:36 51 15 95 12/05/16 17:30 46 19 129/72 100 Room Air 12/05/16 17:30 129/72 12/05/16 16:36 56 94 12/05/16 16:25 100 Room Air 12/05/16 16:22 36.6 48 19 171/96 100 Room Air 12/05/16 16:20 50 12/05/16 16:17 171/96 The patient is an overweight, middle-aged female. She is lying in bed and appears mildly uncomfortable. No acute distress. She is alert and oriented to person place and time. Attention and concentration normal. She exhibits a normal spontaneous speech pattern, is able to identify objects, repeat text, and repeat simple phrases. Recent and remote memory intact. She exhibits a normal fund of knowledge and normal vocabulary. Visual emery full to confrontation. Visual acuity normal. Pupils equal round reactive to light and accommodation. Eye movements normal. There is no nystagmus. Facial sensation normal. Facial strength normal. No facial droop. Hearing intact to finger rub bilaterally. Palate elevates to midline. Tongue protrudes to midline. Shoulder shrug strength intact bilaterally. There is normal sensation to light touch, temperature, vibration, and proprioception in all 4 limbs. Deep tendon reflexes are normal and symmetric for the arms and legs bilaterally. Plantar responses downgoing bilaterally. There is subtle dysmetria with finger to nose and heel to white on the right. Finger to nose and heel to white for the left normal. There is a subtle orbit or fix with normal on the right. Fine finger movements normal and symmetric. Ophthalmoscopic examination reveals normal-appearing optic nerves and posterior elements. No papilledema. No hemorrhages. Carotid pulses normal, no bruits to auscultation. Musculoskeletal examination reveals normal strength for the arms and legs bilaterally, proximally and distally. There is slightly diminished movement initiation for the right lower limb. Muscle tone and bulk normal throughout. No atrophy. No abnormal movements observed. Station normal. Gait not tested due to safety concerns at this time. Laboratory Results Past 24 Hours: 12/05/16 16:20 Red Blood Count 4.70, Mean Corpuscular Volume 89.4, Mean Corpuscular Hemoglobin 30.9, Mean Corpuscular Hemoglobin Concent 34.5, Mean Platelet Volume 11.8, Neutrophils (%) (Auto) 61.2, Lymphocytes (%) (Auto) 28.4, Monocytes (%) (Auto) 6.7, Eosinophils (%) (Auto) 3.0, Basophils (%) (Auto) 0.5, Neutrophils # (Auto) 4.02, Lymphocytes # (Auto) 1.86, Monocytes # (Auto) 0.44, Eosinophils # (Auto) 0.20, Basophils # (Auto) 0.03 12/05/16 16:20 Test 12/05/16 16:20 12/05/16 18:35 12/06/16 07:23 White Blood Count 6.56 K/uL (4.8-10.8) Red Blood Count 4.70 M/uL (4.2-5.4) Hemoglobin 14.5 g/dL (12.0-16.0) Hematocrit 42.0 % (37-47) Mean Corpuscular Volume 89.4 fL (80-100) Mean Corpuscular Hemoglobin 30.9 pg (25-34) Mean Corpuscular Hemoglobin Concent 34.5 g/dl (32-36) Platelet Count 296 K/uL (130-400) Mean Platelet Volume 11.8 fL (7.4-10.4) Neutrophils (%) (Auto) 61.2 % Lymphocytes (%) (Auto) 28.4 % Monocytes (%) (Auto) 6.7 % Eosinophils (%) (Auto) 3.0 % Basophils (%) (Auto) 0.5 % Neutrophils # (Auto) 4.02 K/uL (1.4-6.5) Lymphocytes # (Auto) 1.86 K/uL (1.2-3.4) Monocytes # (Auto) 0.44 K/uL (0.11-0.59) Eosinophils # (Auto) 0.20 K/uL (0-0.5) Basophils # (Auto) 0.03 K/uL (0-0.2) RDW Standard Deviation 42.9 fL (36.4-46.3) RDW Coefficient of Variation 13.1 % (11.5-14.5) Immature Granulocyte % (Auto) 0.2 % Immature Granulocyte # (Auto) 0.01 K/uL (0.00-0.02) Anion Gap 5.0 mmol/L (3-11) Est Creatinine Clear Calc Drug Dose 92.1 ml/min Estimated GFR () 80.9 Estimated GFR (Non- 69.8 BUN/Creatinine Ratio 13.7 (10-20) Calcium Level 9.4 mg/dl (8.5-10.1) Total Bilirubin 0.3 mg/dl (0.2-1) Aspartate Amino Transf (AST/SGOT) 6 U/L (15-37) Alanine Aminotransferase (ALT/SGPT) 19 U/L (12-78) Alkaline Phosphatase 111 U/L (45-117) Troponin I < 0.015 ng/ml (0-0.045) Total Protein 7.7 gm/dl (6.4-8.2) Albumin 4.0 gm/dl (3.4-5.0) Globulin 3.7 gm/dl (2.5-4.0) Albumin/Globulin Ratio 1.1 (0.9-2) Thyroid Stimulating Hormone (TSH) 1.450 uIu/ml (0.300-4.500) Urine Color YELLOW Urine Appearance CLEAR (CLEAR) Urine pH 6.5 (4.5-7.5) Urine Specific Hitchcock 1.006 (1.000-1.030) Urine Protein NEG (NEG) Urine Glucose (UA) NEG (NEG) Urine Ketones NEG (NEG) Urine Occult Blood NEG (NEG) Urine Nitrite NEG (NEG) Urine Bilirubin NEG (NEG) Urine Urobilinogen NEG (NEG) Urine Leukocyte Esterase NEG (NEG) Bedside Glucose 120 mg/dl (70-90) Imaging I reviewed the images and radiologist's interpretation of the recently completed CT of the head and brain MRI. In summary, no significant abnormalities are observed on either of these tests. No evidence of hemorrhage. No evidence of subacute or acute infarct. Ventricle size normal. Brain parenchyma normal. No evidence of Chiari malformation. No evidence of demyelinating disease. Impression Complex migraine. Seems to be improving. Has mild residual right-sided weakness. No evidence of stroke on recently completed MRI. Patient has had similar episodes in the past and carries a diagnosis of complex migraine. Bradycardia potentially related to beta karma therapy. Plan Agree with discontinuing propranolol. However, it may be necessary to gradually taper off this medication to avoid rebound tachycardia. Continue to monitor in telemetry. Reintroduction of a low dose of propranolol will be left to the discretion of the hospitalist. Would recommend a trial of topiramate for migraine prevention going forward. Potential side effects of this medication were discussed directly with the patient including paresthesias, weight loss, kidney stones, and interaction with hormonal contraceptive therapies. She is agreeable to a trial. Would start with 25 mg twice daily. May use IV fluids, anti-emetics, and IV Toradol if needed to address her persistent, but improving migrainous symptoms. May continue with daily low-dose aspirin as well. Follow up with Dr. Swan in neurology clinic in.
[2016-12-06] MEDS ORDERED: TPM25 PO (10:54)
[2016-12-06] MEDS ORDERED: PROP80CA7 PO (10:54)
--- NOTE | 2016-12-06 10:57 | Discharge Instructions ---
Discharge Instructions Admission Admission Date: Dec 05, 2016 at 19:47 Admission Diagnosis: Bradycardia, Dizzy. Discharge Care Plan - Problem: Medical Problems: (1) Impacted cerumen of both ears (2) Migraine variant Care Plan - Goal(s): Decrease discomfort, Improve function Care Plan - Instructions: Activity Recommendations: no limitations Recommended Home Diet: AHA Phase I (2gmNa/LoCho), Diabetic VTE Core Measure Inpt VTE Proph given/why not?: Unfractionated heparin SQ Follow Up Follow-Up: Please follow up with your PCP in 1-2 weeks We have decreased the dosage of propranolol as this medications should be slowly titrated off Nichelle Varghese Recommendations: Call your doctor if: * Temperature above 101 degrees * Pain not relieved by pain medicine ordered * There is increased drainage or redness from any incision * You have any unanswered questions or concerns. Your Doctors Instructions noted above were prepared by provider Laurel Pena.
[2016-12-06 11:08] VITALS: BP 100/63; PULSE 48; TEMP 36.5; O2SAT 98
--- NOTE | 2016-12-06 16:01 | Medical Student: [facility] ---
Med Student History & Physical Date & Time of Service: Dec 06, 2016 at 10:14 Chief Complaint: Bradycardia, Dizzy Primary Care Physician: Mark Kumar M.D. History of Present Illness Source: patient, clinic records, hospital records CC: dizzy, right ear fullness, frontal headache HPI: The patient is a 51 year old right-handed female with a PMH significant for diabetes, bradycardia, endometriosis, fibroids, complex migraines, TIA ( 2015), and chronic bronchitis who presented to the ER the evening of 12/05 for hypotension and bradycardia. The night of 12/04, she went to see the Health Policy Manager at the [facility] with her . After the show, she had to climb up many steps and became short of breath. It was raining outside so her and her then ran to the car. This worsened her SOB and she started to developed a b/l frontal headache. The migraine was pulsatile in nature. She had associated nausea, photophobia and sensitivity to noises. She then began to feel very lethargic and developed a head and right arm tremor. Additionally, she developed generalized right sided weakness. She also noticed speech changes that night. She had trouble saying "S" and had difficulty with word finding. She also started to experience right ear fullness and itching. She had trouble locating her Aspirin, which she knew was odd because she always keeps it in the same place in her house and always knows where it is. Her had to find the aspirin for her. She checked her blood sugar that night and it was 123. Saturday morning (12/05), upon waking up, the patient was extremely fatigued, dizzy, and developed blurry vision. She didn't fall, but she kept leaning sideways when attempting to walk around her house. She took her heart rate at home and it was 42. Additionally, her right ear fullness and itchiness worsened. She took her blood sugar again around 0600 and it was 141. She then went to see her PCP for a possible right ear infection. At her doctor visit, she was discovered to be bradycardic and hypotensive. Her doctor called and ambulance and she was subsequently brought to the emergency room. The patient arrived to the ER around 1600 on 12/05. Her HR was 42 and her BP was 171/96. UA was unremarkable and she was slightly hyperglycemic at 107. CXR was unremarkable and head CT and brain MRI were negative for an acute intracranial abnormality. ECG just showed bradycardia at 43 bpm. The patient was given 4 mg injection of Ondansetron. Her propranolol has been held so far throughout her hospitalization d/t bradycardia. Additionally, her aspirin dose was increased from 81 mg to 325 mg because of her neurologic symptoms persisting for over 24 hours. Today, the patient feels better. She continues to be extremely fatigued, but the severity of her frontal headache has decreased. She continues to be nauseous and have photophobia. She denies fever, diarrhea, constipation, and dysuria. The patient has had complex migraines since 2010. In 2010, the patient was hospitalized at [facility] for a TIA. Her symptoms at the time were right hemiparesis and slurred speech. She did not develop a headache until many hours later. Her expressive aphasia at the time resolved, but since her TIA, she had continued to have right lower extremity weakness with migraines. Since 2010, she develops migraines once every couple of months. Each migraine is similar in presentation. She develops unilateral or bilateral frontal headache of pulsatile nature followed by nausea, photophobia, sensitivity to noises, right sided weakness, and tremors in her head, neck and right arm. In 2010, she started Depakote for migraine prophylaxis. The Depakote did relieve her migraines, but she was switched to propranolol by a doctor at [place]. She has never tried veramapil or Topomax for migraine relief. This past March, the patient was hospitalized again for a possible left MCA territory TIA. She was started on daily aspirin and pravastatin. Head CT, CT angio and brain MRI in March were all unremarkable. The patient follows with Dr. Swan here in [place]. This past June, Dr. Swan decreased her propranolol dose from 120 to 80 mg PO daily d/t her bradycardia. PMH: 1) Complex Migraines 2) Diabetes 3) Bradycardia 4) Endometriosis 5) Fibroids 6) Chronic bronchitis 7) TIA x 2 (2011 and 2015) Medications: 1) Propranolol 80 mg PO daily 2) Excedrin PRN for migraines 3) Aspirin 81 mg PO daily 4) Metformin 750 PO BID 5) Fluticasone/salmeterol 1 puff BID 6) Albuterol 2 puff q4hr PRN 7) Duoneb 1 puff q4hr Family History: Father has a history of migraines, diabetes, and TIA. Mother has a history of heart disease. Maternal grandmother has a history of colon CA and brother has history of diabetes. Surgeries: Patient's surgical history is significant for a hysterectomy and b/l salpingo-oophorectomy 10 years ago, sinus surgery, bone spurs on b/l toes, D & C. Social History: The patient has never used tobacco products. She does drink wine occasionally. She is and lives in [place]. 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 Allergies: 1) Loratadine 2) Metronidazole 3) Montelukast 4) Escitalopram Past Medical/Surgical History Medical Problems: (1) CVA (cerebral vascular accident) Status: Acute (2) Impacted cerumen of both ears Status: Acute (3) Left sided chest pain Status: Acute (4) Lower abdominal pain Status: Acute (5) Migraine variant Status: Acute (6) Right sided weakness Status: Acute Family History Father: heart disease, diabetes, pertinent history of Social History Smoking Status: Never Smoker Alcohol Use: socially Marital Status: Housing status: lives with family Occupational Status: employed Immunizations History of Influenza Vaccine: Yes Influenza Vaccine Date: Jun 06, 2011 History of Tetanus Vaccine?: Yes History of Pneumococcal: Yes Pneumococcal Date: Nov 29, 2010 History of Hepatitis B Vaccine: No Allergies Coded Allergies: Loratadine (Verified Allergy, Unknown, rash, 11/08/16) Metronidazole (Verified Allergy, Unknown, [place], 11/30/16) Montelukast (Verified Allergy, Unknown, HIVES, 11/08/16) Escitalopram (Verified Adverse Reaction, Unknown, INSOMNIA, 11/08/16) Medications Albuterol Sulfate (Proair Respiclick), 2 PUFFS INH Q4H PRN for SOB/Wheezing Aspirin (Aspirin Ec), 81 MG PO QAM Fluticasone Prop/Salmeterol (Advair Diskus 250/50 60 Dose), 1 PUFF INH BID Ipratropium-Albuterol (Duoneb), 1 TREATMENT INH Q4H PRN for SOB/Wheezing Metformin Hcl (Glucophage Er), 750 MG PO BID Pravastatin Sodium (Pravastatin Sodium), 10 MG PO HS Propranolol Hcl (Inderal La), 60 MG PO DAILY Topiramate (Topiramate), 25 MG PO BID [Doterra], 1 TAB PO QAM Review of Systems Constitutional: No fever Eyes: No worsening of vision ENT: No hearing loss Respiratory: No shortness of breath Cardiovascular: No chest pain Abdomen: + nausea, No diarrhea Genitourinary - Female: + menorrhagia, No dysuria Neurologic: + weakness (right sided ), No memory loss Endocrine: + fatigue Physical Exam Vital Signs (24 Hours) Date Time Temp Pulse Resp B/P Pulse Ox O2 Delivery O2 Flow Rate FiO2 12/06/16 07:42 36.5 48 16 100/63 98 Room Air 12/06/16 04:47 36.4 57 18 111/69 99 12/06/16 04:00 Room Air 12/06/16 00:00 Room Air 12/05/16 23:25 36.4 49 18 106/70 96 Room Air 12/05/16 21:00 37.2 57 16 125/66 98 Room Air 12/05/16 20:11 52 15 98 12/05/16 19:41 60 14 96 12/05/16 19:11 53 20 97 12/05/16 18:41 51 15 98 12/05/16 18:38 48 120/71 48 138/86 50 143/88 12/05/16 18:29 143/88 12/05/16 18:28 138/86 12/05/16 18:27 120/71 12/05/16 18:24 120/74 12/05/16 18:11 57 19 97 12/05/16 18:06 62 15 129/70 93 12/05/16 17:36 51 15 95 12/05/16 17:30 46 19 129/72 100 Room Air 12/05/16 17:30 129/72 12/05/16 16:36 56 94 12/05/16 16:25 100 Room Air 12/05/16 16:22 36.6 48 19 171/96 100 Room Air 12/05/16 16:20 50 12/05/16 16:17 171/96 Vitals: temp 36.5, HR 48, BP 100/63, RR 16, O2 sat 98 on room air Neurologic Exam: The patient is a 51 year old right-handed female who is no apparent distress, just very fatigued. Spontaneous speech is of normal rate and tone with no dysarthria. Recent and remote memory are intact. General fund of knowledge is appropriate. She was able to name several items on a card and read a sentence clearly. The patient has normal tone. Strength in right wrist extensor, wrist flexor, biceps, triceps and deltoid is 4/5. Strength in left wrist extensor, wrist flexor, biceps, triceps, and deltoid is 5/5. Strength in right and left hip flexors, knee flexors, knee extensors, ankle flexors, and ankle extensors is 5/ 5. Light touch sensation is intact in upper and lower extremities bilaterally, symmetrically. Vibration sense was intact bilaterally, symmetrically in first toe. Biceps, triceps, brachioradialis, and achilles reflexes were 1 + bilaterally, symmetrically. Patellar reflexes were 2+ bilaterally, symmetrically. Toes were down going bilaterally on babinski reflex testing. There was slight dysmetria on right [id number] testing, but none on left side. No dysmetria noted on [id number] testing bilaterally. No dysdiadochokinesia was observed. On forearm rolling test, the patient seemed to orbit around her right hand. Cranial Nerves: CN 1: not tested CN II: pupils equal, round, and reactive to light, peripheral field intact CN III: pupils equal, round, and reactive to light, EOM intact CN IV: EOM intact CN V: symmetrical sensation to light touch over the 3 distributions of CN V, masseter muscle palpated and symmetrical CN : EOM intact CN VII: symmetrical wrinkling of forehead, eye closure, smile, and cheek expansion CN VIII: hearing intact and symmetrical CN IX: uvula midline CN X: uvula midline CN XI: trapezius muscle moves symmetrical, 5/5 strength CN XII: tongue protrudes midline Cardio: regular rhythm, bradycardic, no murmurs, normal S1 and S2, no rubs, no carotid bruits b/l. Dorsalis pedis and posterior tibial pulses were 2+ symmetrically, bilaterally. Diagnostics Laboratory Results Results Past 24 Hours Test 12/05/16 16:20 12/05/16 18:35 12/05/16 21:05 12/06/16 07:23 Range/Units White Blood Count 6.56 4.8-10.8 K/uL Red Blood Count 4.70 4.2-5.4 M/uL Hemoglobin 14.5 12.0-16.0 g/dL Hematocrit 42.0 37-47 % Mean Corpuscular Volume 89.4 80-100 fL Mean Corpuscular Hemoglobin 30.9 25-34 pg Mean Corpuscular Hemoglobin Concent 34.5 32-36 g/dl Platelet Count 296 130-400 K/uL Mean Platelet Volume 11.8 7.4-10.4 fL Neutrophils (%) (Auto) 61.2 % Lymphocytes (%) (Auto) 28.4 % Monocytes (%) (Auto) 6.7 % Eosinophils (%) (Auto) 3.0 % Basophils (%) (Auto) 0.5 % Neutrophils # (Auto) 4.02 1.4-6.5 K/uL Lymphocytes # (Auto) 1.86 1.2-3.4 K/uL Monocytes # (Auto) 0.44 0.11-0.59 K/uL Eosinophils # (Auto) 0.20 0-0.5 K/uL Basophils # (Auto) 0.03 0-0.2 K/uL RDW Standard Deviation 42.9 36.4-46.3 fL RDW Coefficient of Variation 13.1 11.5-14.5 % Immature Granulocyte % (Auto) 0.2 % Immature Granulocyte # (Auto) 0.01 0.00-0.02 K/uL Sodium Level 142 136-145 mmol/L Potassium Level 3.9 3.5-5.1 mmol/L Chloride Level 106 98-107 mmol/L Carbon Dioxide Level 31 21-32 mmol/L Anion Gap 5.0 3-11 mmol/L Blood Urea Nitrogen 13 7-18 mg/dl Creatinine 0.95 0.60-1.20 mg/dl Est Creatinine Clear Calc Drug Dose 92.1 ml/min Estimated GFR () 80.9 Estimated GFR (Non- 69.8 BUN/Creatinine Ratio 13.7 10-20 Random Glucose 107 70-99 mg/dl Calcium Level 9.4 8.5-10.1 mg/dl Total Bilirubin 0.3 0.2-1 mg/dl Aspartate Amino Transf (AST/SGOT) 6 15-37 U/L Alanine Aminotransferase (ALT/SGPT) 19 12-78 U/L Alkaline Phosphatase 111 45-117 U/L Troponin I < 0.015 0-0.045 ng/ml Total Protein 7.7 6.4-8.2 gm/dl Albumin 4.0 3.4-5.0 gm/dl Globulin 3.7 2.5-4.0 gm/dl Albumin/Globulin Ratio 1.1 0.9-2 Thyroid Stimulating Hormone (TSH) 1.450 0.300-4.500 uIu/ml Urine Color YELLOW Urine Appearance CLEAR CLEAR Urine pH 6.5 4.5-7.5 Urine Specific [place] 1.006 1.000-1.030 Urine Protein NEG NEG Urine Glucose (UA) NEG NEG Urine Ketones NEG NEG Urine Occult Blood NEG NEG Urine Nitrite NEG NEG Urine Bilirubin NEG NEG Urine Urobilinogen NEG NEG Urine Leukocyte Esterase NEG NEG Bedside Glucose 99 120 70-90 mg/dl Diagnostic Radiology Head CT HEAD CT NONCONTRAST CT DOSE: 601.98 mGy.cm HISTORY: Mental status change weakness TECHNIQUE: Multiaxial CT images of the head were performed without the use of intravenous contrast. Comparison: 04/08/2016 Findings: The paranasal sinuses and mastoid air cells are clear. The calvarium and skull base are intact. The ventricles and sulci are within normal limits. There is no mass, hematoma, midline shift, or acute infarct. Impression: No acute intracranial abnormality. CXR [~ rep ct add3]] CHEST 2 VIEWS ROUTINE CLINICAL HISTORY: weakness dyspnea COMPARISON STUDY: 04/08/2016 FINDINGS: The bones soft tissues and hemidiaphragms are normal. The cardiomediastinal silhouette is normal. The lungs are clear. The pulmonary vasculature is normal. IMPRESSION: Negative chest. Brain MRI WITHOUT CONTRAST HISTORY: Mental status change cava TECHNIQUE: Multiplanar multisequence MRI of the brain was performed without the use of contrast. COMPARISON STUDY: 04/08/2016 FINDINGS: There are no areas of restricted diffusion to suggest acute infarction. The midline structures are intact. The paranasal sinuses are clear. The mastoid air cells are clear. The ventricles and sulci are within normal limits for age. There is no mass, hematoma, midline shift. The major vascular flow-voids at the skull base are well maintained. IMPRESSION: No acute intracranial abnormality. No change from the prior study. Impression Assessment and Plan Assessment: The patient is a 51 year old right-handed female with a PMH significant for diabetes, bradycardia, endometriosis, fibroids, complex migraines, chronic bronchitis, TIA x 2 (2011 & 2015) who presented to the ER on 12/05 with complaints of dizziness, right ear fullness, and fontal headache. Her other associated symptoms of head and right arm tremor, nausea, right sided weakness, and photophobia are her usual associated symptoms when she develops complex migraines. Accordingly, her presentation and unremarkable imaging studies in the ER indicate she most likely was experiencing another complex migraine. In addition to a complex/hemiplegic migraine, the patient was and continues to be bradycardic. This is most likely a side effect of her propranolol. Differential Diagnosis: -I suspect that this is a complex/hemiplegic migraine. The patient has a history of migraines associated with right sided weakness since 2010. Additionally, the patient has many other associated symptoms that are commonly observed in hemiplegic migraines including blurry vision, aphasia, and lethargy. Her PMH of complex/hemiplegic migraines, current symptomatology, and normal head CT, CT angio, and brain MRI all indicate that this event was likely a hemiplegic migraine. -Another consideration is vestibular neuritis/labyrinthitis. The patient was experiencing gait instability, dizziness and nausea, which are consistent with vestibular neuritis/labyrinthitis. Additionally, the patient was experiencing auditory symptoms such as right ear fullness which is also consistent with labyrinthitis, but not vestibular neuritis. However, the patient did not have a history of illness prior to this episode of headache and weakness and did not present with leukocytosis or fever. Also the patient did not have nystagmus on physical exam. Both of these findings are inconsistent with vestibular neuritis or labyrinthitis. -Another consideration is a TIA/stroke. The patient does have a history of two TIAs (2011 and 2015). Additionally, she does have HTN and diabetes which are stroke/TIA risk factors. This diagnosis is still unlikely however because her head CT and brain MRI showed no signs of hemorrhage or an acute ischemic event however. Additionally, her focal neurologic symptoms (right sided weakness, slurred speech, tremor) have been improving. In addition, these focal neurologic signs occur with her complex migraines and have manifested multiple times in the past as symptoms associated with her migraines. -Another consideration is a metabolic abnormality such as hypoglycemia. Many of her presenting symptoms could be consistent with hypoglycemia including dizziness, fatigue and tremors. Although the patient is a diabetic and can be at risk of hypoglycemia with ceratin types of medications, metformin typically does not cause hypoglycemia. Also, she measured her blood sugar levels when her symptoms developed and her levels were normal. -Another consideration is a simple partial seizure. A seizure could subsequently cause Chapo's paralysis, which would be consistent with this patient 's right sided weakness. Chapo's paralysis can also affect speech and vision, which again is consistent with this patient's presentation of slurred speech and blurry vision. Seizure is unlikely however because the patient did not report any episodes of uncontrolled movements, urinary incontinence, or post- ictal state. -Another consideration is an intracranial mass. The most common type of intracranial mass in a 51 year old would be metastasis. The patient has no history of cancer. Although intracranial masses can cause focal neurologic deficits, the patient's description of her headaches is not consistent with the headache associated with a mass. Her headaches are not dull, constant, occur in the morning, or change with position. Additionally, brain MRI and head CT did not show evidence of a mass. Plan: -Continue to hold the propranolol as the patient is still bradycardic. Once her heart rate becomes more stable, this migraine prophylaxis should actually be tapered slowly to avoid rebound tachycardia. -Try a trial of topiramate 25 mg BID as migraine prophylaxis. The patient was instructed of various side effects including paresthesias, weight loss, kidney stones, and interference with control. -Continue IV fluids, IV Ondansetron 4 mg q6hr and IV Toradol as needed for pain and nausea relief -Continue Aspirin 81 mg PO daily and Pravastatin 10 mg PO daily for stroke preventing considering she has a PMH of two TIAs. -Follow up with Dr. Swan in clinic in 1 month Advanced Directives Existing Living Will: No Existing Power of Network Technician: No
--- NOTE | 2016-12-06 17:23 | Discharge Summary ---
Discharge Summary Date of Service Dec 06, 2016. Discharge Summary Admission Date: Dec 05, 2016 at 19:47 Discharge Date: Dec 06, 2016 Discharge Disposition: Home Principal Diagnosis: Complex Migraine/ Bradycardia Immunizations: Have You Had Influenza Vaccine: Yes Influenza Vaccine Date: Jun 06, 2011 History of Tetanus Vaccine?: Yes History of Pneumococcal: Yes Pneumococcal Date: Nov 29, 2010 History of Hepatitis B Vaccine: No Consultations: Neurology Medication Reconciliation New Medications: Propranolol Hcl (Inderal La) 80 Mg Cap 60 MG PO DAILY for 30 Days, #30 CAP Topiramate (Topiramate) 25 Mg Tab 25 MG PO BID for 30 Days, #60 TAB Continued Medications: Albuterol Sulfate (Proair Respiclick) 108 Mcg/Act Aer 2 PUFFS INH Q4H PRN for SOB/Wheezing Aspirin (Aspirin Ec) 81 Mg Tab 81 MG PO QAM Fluticasone Prop/Salmeterol (Advair Diskus 250/50 60 Dose) 1 Ea Aerp 1 PUFF INH BID, INHALER Ipratropium-Albuterol (Duoneb) 3 Ml Nebu 1 TREATMENT INH Q4H PRN for SOB/Wheezing Metformin Hcl (Glucophage Er) 750 Mg Tab 750 MG PO BID Pravastatin Sodium (Pravastatin Sodium) 10 Mg Tab 10 MG PO HS [Doterra] () 1 TAB PO QAM Discontinued Medications: Propranolol HCl (Propranolol HCl ER) 80 Mg Capcr 80 MG PO QAM Discharge Exam Review of Systems: Constitutional: No chills, No fever Eyes: No worsening of vision ENT: No hearing loss Respiratory: No cough, No shortness of breath, No sputum Cardiovascular: No chest pain Abdomen: No pain Musculoskeletal: No joint pain Genitourinary - Female: No dysuria Neurologic: No memory loss, No paralysis Physical Exam: General Appearance: WD/WN, no apparent distress Eyes: normal inspection ENT: normal ENT inspection Neck: supple Respiratory/Chest: chest non-tender, lungs clear Cardiovascular: regular rate, rhythm, no edema Abdomen / GI: normal bowel sounds Extremities: normal inspection Neurologic/Psychiatric: nailhead puncher II-XII nml as tested, no motor/sensory deficits , alert Hospital Course 51 y/o F w/Hx complex migraines, DM, chronic CP, Chronic bronchitis, HPL who presented to [facility] ED with weakness and headache. Patient was admitted to the hospitalist service. Neurology was consulted as patient is known to Dr. Brian of neurology. Patient was also noticed to be bradycardic which per patient has been a chronic issues. Pts symptoms were attributed to a complex migraine possibly exacerbated by bradycardia. Patient is on propranolol 80 mg daily. It was decided to start Topamax for complex migraine. Patients propranolol was decreased to 60 mg with the end goal being to taper off. Given that patient was on propranolol for multiple years it was decided to taper off to avoid beta- karma withdrawal. After 24 hours patients symptoms resolved and she was found stable for discharge. Total Time Spent: Greater than 30 minutes This includes examination of the patient, discharge planning, medication reconciliation, and communication with other providers. Discharge Instructions Please refer to the electronic Patient Visit Report (Discharge Instructions) for additional information.
[2016-12-06] MEDS ORDERED: TOPIRAMATE 25 MG TAB PO SCH (21:00)
[2016-12-07] MEDS ORDERED: PROPRANOLOL HCL 20 MG TAB PO SCH (09:00)
[2016-12-13] MEDS ORDERED: PRED10TA PO (10:37)
[2016-12-13] MEDS ORDERED: TOPI50TA24 PO (10:37)
== END 2016-12-06 11:30 | disposition home or self-care (01) | DRG 103 ==
LOC: ENRESERVDT → ENRESERVTM → EDBD 16:06 → C.EDB 16:08 → C.MED 19:47
PROVIDERS: ADMIT Internal Medicine; ATTEND Internal Medicine
DX: G43.909 Migraine, unspecified, not intractable, without status migrainosus (principal); G81.91 Hemiplegia, unspecified affecting right dominant side; E78.5 Hyperlipidemia, unspecified; R00.1 Bradycardia, unspecified; J45.909 Unspecified asthma, uncomplicated; E11.9 Type 2 diabetes mellitus without complications; J42 Unspecified chronic bronchitis; H61.23 Impacted cerumen, bilateral; R42 Dizziness and giddiness; Z79.82 Long term (current) use of aspirin; Z79.84 Long term (current) use of oral hypoglycemic drugs; Z79.51 Long term (current) use of inhaled steroids; Z79.899 Other long term (current) drug therapy

== ENCOUNTER 2016-12-11 11:52 | Observation (INO) | payer BC ==
[~2016-12-11] VITALS: Ht 175.3 cm; Wt 102.1 kg
[~2016-12-11 11:52] MED LIST changes: -GLC/500 PO; +METF750T PO; +PRAV10TA39 PO; +PROP80CA7 PO; -PROP80TA2 PO; -PRVC/10 PO; +TPM25 PO
[2016-12-11] MEDS ORDERED: PROP60CA5 PO (12:10)
[2016-12-11] MEDS ORDERED: TOPI25TA99 PO (12:10)
[2016-12-11] MEDS ORDERED: SODIUM CHLORIDE 0.9% 1000ML 500 ML IV STA (12:19)
[2016-12-11] MEDS ORDERED: MECLIZINE HCL 25 MG TAB PO STA (12:19)
[2016-12-11] MEDS ORDERED: ONDANSETRON INJ 2 MG/ML 2 ML VIAL IV STA (12:19)
[2016-12-11] MEDS ORDERED: SODIUM CHLORIDE 0.9% 1000ML 1,000 ML IV STA (12:19)
--- NOTE | 2016-12-11 12:31 | EMERGENCY ROOM VISIT NOTE ---
History Report prepared by Odin: Julia Tipton Under the Supervision of: Dr. Rusty Flores M.D. First contact with patient: 12:11 Chief Complaint: NEURO SYMPTOMS Stated Complaint: NAUSEA, DIZZY, WEAKNESS, CVA Nursing Triage Summary: Pt presents with dizziness, "not feeling well and I'm not concentrating right. I have been toppling to the left." Denies h/a at present, states she did have one over the weekend. States seen here last week for bradycardia. Sx x 1 week. History of Present Illness The patient is a 51 year old female who presents to the Emergency Room with complaints of persistent dizziness that began one week ago. The patient states that one week ago she went to her PCP's office because she felt that she had an ear infection. She states that she was transferred to the emergency department via ALS due to her bradycardia. The patient states that since then she has been feeling lethargic and dizzy. She states that her Propranolol was decreased from 80 mg to 60 mg and she was started on Topamax. The patient states that she has a history of complex migraines and previously tried Meclizine for vertigo. She states that Saturday she had a migraine and was vomiting. The patient denies any headache today. She states that today she has been persistently checking her heart rate--it has been low. The patient denies any recent fever, cough, cold, or congestion. The patient states that she has noticed increased weakness to her right arm. Source of History: patient Onset: one week ago Position: other (global) Quality: other (dizziness) Timing: other (persistent) Associated Symptoms: + weakness (right arm), No cough, No fevers, No headache Note: Associated Symptoms: lethargic Review of Systems See HPI for pertinent positives & negatives. A total of 10 systems reviewed and were otherwise negative. Past Medical & Surgical Medical Problems: (1) Asthma (2) Bradycardia (3) Chronic bronchitis (4) Diabetes (5) dizziness, complex migraine, chest pain (6) Dizzy (7) Migraine aura, persistent, intractable Surgical Problems: (1) History of total hysterectomy with bilateral salpingo-oophorectomy (BSO) Family History Diabetes mellitus Heart disease Social History Smoking Status: Never Smoker Alcohol Use: occasionally Marital Status: Occupation Status: employed Current/Historical Medications Scheduled Aspirin (Aspirin Ec), 81 MG PO QAM Fluticasone Prop/Salmeterol (Advair Diskus 250/50 60 Dose), 1 PUFF INH BID Metformin Hcl (Glucophage Er), 750 MG PO BID Pravastatin Sodium (Pravastatin Sodium), 10 MG PO HS Propranolol La (Inderal La), 60 MG PO DAILY Topiramate (Topamax ), 25 MG PO BID [Doterra], 1 TAB PO QAM Scheduled PRN Albuterol Sulfate (Proair Respiclick), 2 PUFFS INH Q4H PRN for SOB/Wheezing Ipratropium-Albuterol (Duoneb), 1 TREATMENT INH Q4H PRN for SOB/Wheezing Allergies Coded Allergies: Loratadine (Verified Allergy, Unknown, rash, 12/11/16) Metronidazole (Verified Allergy, Unknown, SKIN LAWRENCE, 12/11/16) Montelukast (Verified Allergy, Unknown, HIVES, 12/11/16) Escitalopram (Verified Adverse Reaction, Unknown, INSOMNIA, 12/11/16) Physical Exam Vital Signs Date Time Temp Pulse Resp B/P Pulse Ox O2 Delivery O2 Flow Rate FiO2 12/11/16 13:46 99 Room Air 12/11/16 12:57 45 20 156/74 99 Room Air 12/11/16 12:37 48 12/11/16 12:19 51 149/82 50 146/80 55 151/81 12/11/16 12:17 100 Room Air 12/11/16 11:54 36.9 51 18 146/84 99 Room Air Physical Exam GENERAL: Patient is in no acute distress. HEENT: No acute trauma, normocephalic atraumatic, mucous membranes moist, no nasal congestion, no scleral icterus. Both TMs occluded by wax. NECK: No stridor, no adenopathy, no meningismus, trachea is midline. LUNGS: Clear to auscultation bilaterally, no wheeze, no rhonchi, breath sounds equal. HEART: Bradycardic with regular rhythm, no murmurs. ABDOMEN: Soft, nontender, bowel sounds positive, no hernias, no peritonitis. EXTREMITIES: No cyanosis or edema, full range of motion of all the joints without pain or difficulty, no signs for acute trauma. NEUROLOGIC: Oriented x 3, no acute motor or sensory deficits, no focal weakness. No pronator drift or cerebellar dysfunction. No speech slur. Slightly clumsy in right upper extremity with rapid alternating movements. SKIN: No rash, no jaundice, no diaphoresis. Medical Decision & Procedures ER Provider Diagnostic Interpretation: Orthostatic vital signs are negative Laboratory Results 12/11/16 12:10 Red Blood Count 4.46, Mean Corpuscular Volume 90.4, Mean Corpuscular Hemoglobin 30.3, Mean Corpuscular Hemoglobin Concent 33.5, Mean Platelet Volume 11.2, Neutrophils (%) (Auto) 62.4, Lymphocytes (%) (Auto) 28.9, Monocytes (%) (Auto) 5.0, Eosinophils (%) (Auto) 3.2, Basophils (%) (Auto) 0.4, Neutrophils # (Auto) 4.35, Lymphocytes # (Auto) 2.02, Monocytes # (Auto) 0.35, Eosinophils # (Auto) 0.22, Basophils # (Auto) 0.03 12/11/16 12:10 Test 12/11/16 12:10 12/11/16 12:50 White Blood Count 6.98 K/uL (4.8-10.8) Red Blood Count 4.46 M/uL (4.2-5.4) Hemoglobin 13.5 g/dL (12.0-16.0) Hematocrit 40.3 % (37-47) Mean Corpuscular Volume 90.4 fL (80-100) Mean Corpuscular Hemoglobin 30.3 pg (25-34) Mean Corpuscular Hemoglobin Concent 33.5 g/dl (32-36) Platelet Count 289 K/uL (130-400) Mean Platelet Volume 11.2 fL (7.4-10.4) Neutrophils (%) (Auto) 62.4 % Lymphocytes (%) (Auto) 28.9 % Monocytes (%) (Auto) 5.0 % Eosinophils (%) (Auto) 3.2 % Basophils (%) (Auto) 0.4 % Neutrophils # (Auto) 4.35 K/uL (1.4-6.5) Lymphocytes # (Auto) 2.02 K/uL (1.2-3.4) Monocytes # (Auto) 0.35 K/uL (0.11-0.59) Eosinophils # (Auto) 0.22 K/uL (0-0.5) Basophils # (Auto) 0.03 K/uL (0-0.2) RDW Standard Deviation 42.3 fL (36.4-46.3) RDW Coefficient of Variation 12.9 % (11.5-14.5) Immature Granulocyte % (Auto) 0.1 % Immature Granulocyte # (Auto) 0.01 K/uL (0.00-0.02) Prothrombin Time 10.5 SECONDS (9.0-12.0) Prothromb Time International Ratio 1.0 (0.9-1.1) Activated Partial Thromboplast Time 31.9 SECONDS (21.0-31.0) Partial Thromboplastin Ratio 1.2 Anion Gap 6.0 mmol/L (3-11) Est Creatinine Clear Calc Drug Dose 86.7 ml/min Estimated GFR () 76.1 Estimated GFR (Non- 65.6 BUN/Creatinine Ratio 17.2 (10-20) Calcium Level 8.9 mg/dl (8.5-10.1) Magnesium Level 2.1 mg/dl (1.8-2.4) Total Bilirubin 0.3 mg/dl (0.2-1) Aspartate Amino Transf (AST/SGOT) 6 U/L (15-37) Alanine Aminotransferase (ALT/SGPT) 18 U/L (12-78) Alkaline Phosphatase 95 U/L (45-117) Troponin I < 0.015 ng/ml (0-0.045) Total Protein 7.2 gm/dl (6.4-8.2) Albumin 3.8 gm/dl (3.4-5.0) Globulin 3.4 gm/dl (2.5-4.0) Albumin/Globulin Ratio 1.1 (0.9-2) Thyroid Stimulating Hormone (TSH) 0.974 uIu/ml (0.300-4.500) Urine Color YELLOW Urine Appearance CLEAR (CLEAR) Urine pH 5.5 (4.5-7.5) Urine Specific [place] 1.007 (1.000-1.030) Urine Protein NEG (NEG) Urine Glucose (UA) NEG (NEG) Urine Ketones NEG (NEG) Urine Occult Blood NEG (NEG) Urine Nitrite NEG (NEG) Urine Bilirubin NEG (NEG) Urine Urobilinogen NEG (NEG) Urine Leukocyte Esterase NEG (NEG) Laboratory results reviewed by me. Medications Administered Medications (Trade) Dose Ordered Sig/Julián Route Start Time Stop Time Status Last Admin Dose Admin Sodium Chloride (Nss 1000ml) 500 ml @ 999 mls/hr Q31M STAT IV 12/11/16 12:19 12/11/16 12:49 DC 12/11/16 12:44 999 MLS/HR Ondansetron HCl 4 mg 4 mg NOW STAT IV 12/11/16 12:19 12/11/16 12:26 DC 12/11/16 12:41 4 MG Sodium Chloride (Nss 1000ml) 1,000 ml @ 200 mls/hr Q5H STAT IV 12/11/16 12:19 12/11/16 17:18 12/11/16 12:44 200 MLS/HR Meclizine HCl (Antivert Tab) 25 mg NOW STAT PO 12/11/16 12:19 12/11/16 12:26 DC 12/11/16 12:42 25 MG ECG Indication: other (neuro symptoms) Rate (beats per minute): 51 Rhythm: sinus bradycardia (sinus arrhythmia) Findings: no acute ischemic change, no ectopy ED Course 1214: The patient was evaluated in room A4B. A complete history and physical exam was performed. I discussed the treatment plan with the patient and she verbalized complete understanding and agreement. She will be evaluated for further treatment. 1219: ordered Antivert Tab 25 mg PO, Sodium Chloride 1000 ml @ 200 mls/hr IV, Zofran Inj 4 mg IV, Sodium Chloride 500 ml @ 999 mls/hr IV. 1325: I discussed the patients case with Dr. Bauman [facility]. He is going to evaluate the patient for further treatment. 1332: I reevaluated the patient and she is feeling better. I updated her on the treatment plan and she is in agreement. 1513: I reevaluated the patient and she is nauseous and vomiting. Medical Decision The patient is a 51 year old female who presents to the ED with complaints of dizziness. Differential diagnoses considered include stroke, complex migraine, dehydration, medication reaction, vertigo, anemia, infection, electrolyte imbalance, bradycardia. There is no leukocytosis or worrisome anemia. No significant electrolyte abnormality, kidney failure or hepatitis. The patient appears to be in a euthyroid state. Orthostatic vital signs are negative. EKG shows a sinus bradycardia, no acute ischemia. Urinalysis does not show evidence for infection. On exam, the patient has some subtle clumsiness to her right upper extremity rapid alternating movement testing. No drifting or cerebellar dysfunction noted. The patient presents with ongoing symptoms now for over a week. She has been in the hospital and discharged and has not had improvement. She is bradycardic here and does have some subtle findings to the right upper extremity. Certainly , stroke is a consideration, complex migraine is possible. Her bradycardia may be part of the issue. Even medication reaction is a possibility. Admission/observation is warranted. I spoke to the patient and case management. The on-call hospitalist was consulted. Of note, the patient did receive IV saline, oral meclizine, IV Zofran. Both of her cerumen impactions were flushed. Consults Time Called: 1314 Consulting Physician: CAMPOS Aguilar Returned Call: 1325 I discussed the patients case with CAMPOS Aguilar. He is going to evaluate the patient for further treatment. Impression Primary Impression: Stroke-like symptoms Additional Impression: Bradycardia Scribe Attestation The scribe's documentation has been prepared under my direction and personally reviewed by me in its entirety. I confirm that the note above accurately reflects all work, treatment, procedures, and medical decision making performed by me. Departure Information Dispostion Being Evaluated By Hospitalist Referrals Mark Kumar M.D. (PCP) Problem Qualifiers
[2016-12-11 12:34] LABS: BASO % 0.4 %; BASO ABS # 0.03 K/uL (0-0.2); COMPLETE YES; EOS % 3.2 %; HEMATOCRIT 40.3 % (37-47); IG% 0.1 %; LYMPH % 28.9 %; LYMPH ABS # 2.02 K/uL (1.2-3.4); MEAN CELL VOLUME 90.4 fL (80-100); MEAN CORPUSCULAR HEMOGLOBIN 30.3 pg (25-34); MEAN CORPUSCULAR HGB CONC 33.5 g/dl (32-36); MEAN PLATELET VOLUME 11.2 fL (7.4-10.4); NEUT % 62.4 %; PLATELET COUNT 289 K/uL (130-400); RED BLOOD COUNT 4.46 M/uL (4.2-5.4); WHITE BLOOD COUNT 6.98 K/uL (4.8-10.8)
[2016-12-11 12:59] LABS: BUN/CREATININE RATIO 17.2 (10-20); CALCIUM 8.9 mg/dl (8.5-10.1); MAGNESIUM 2.1 mg/dl (1.8-2.4)
[2016-12-11 13:09] LABS: ALB/GLOB RATIO 1.1 (0.9-2); THYROID STIMULATING HORMONE 0.974 uIu/ml (0.300-4.500)
[2016-12-11 13:14] LABS: URINE APPEARANCE CLEAR (CLEAR); URINE BILIRUBIN NEG (NEG); URINE COLOR YELLOW; URINE NITRITE NEG (NEG); URINE PH 5.5 (4.5-7.5); URINE SPECIFIC GRAVITY 1.007 (1.000-1.030); UROBILINOGEN NEG (NEG); ZZUR CULT IF INDIC CLEAN CATCH NO
[2016-12-11 13:15] LABS: MANUAL MICROSCOPIC REQUIRED? NO; REVIEW REQ? NO
[2016-12-11 13:46] VITALS: O2SAT 99; Ht 175.3 cm; Wt 102.1 kg
--- NOTE | 2016-12-11 14:08 | History and Physical ---
History & Physical Date & Time of Service: Dec 11, 2016 at 14:02 Chief Complaint: Nausea, Dizzy, Weakness, Cva Primary Care Physician: Mark Kumar M.D. History of Present Illness Source: patient, family This is a 51-year-old female with past medical history of bradycardia, asthma, complex migraine syndrome, diabetes mellitus, chronic bronchitis. Of note the patient had been placed on Depakote in 2010 from [place] physician for complex migraines, she experienced good relief of migraines at that time, for unknown reason she was switched over to propranolol 120 mg in 2011. She had tolerated that dosage of propranolol until March 2016 when she was admitted to [facility] for episode of TIA versus complex migraine. It was recommended at that time that she see neurology and discussed dosage reduction for bradycardia. Neurology had reduced her dose from 120 mg to 80 mg as an outpatient. She was recently admitted 1 week ago for dizziness and right upper extremity weakness from 12/05-, Neurology was consulted and diagnosed the patient with a complex migraine, so was treated by a reduction of propranolol from 80-60 mg. Patient was seen this morning by her PCP for routine follow-up. Patient notes that she had a migraine this past Saturday which caused her to be off balance, dizzy, and required a cane for ambulation. She took Excedrin Migraine throughout the day on Saturday and her headache resolved, her dizziness also somewhat resolved. She continued to experience dizziness on Saturday and today but denies having any sort of headache. She does not have antiemetics at home to help with nausea, which has been ongoing with dizziness. She denies experiencing any visual changes, ringing in the ears, shortness of breath, palpitation, flutter, weakness, and fatigue. At the end of my exam she states "and I has been having some chest pain on and off today" and she appears extremely anxious. In the ER the patient's CBC and BMP are unremarkable. Her ears were flushed bilaterally due to severe wax impaction, and is being done again when I left the room. Past Medical/Surgical History Medical Problems: (1) Chronic bronchitis Status: Chronic Bradycardia Asthma, severity unspecified Hx of DM II Complex migraine Family History Diabetes mellitus Heart disease Social History Smoking Status: Never Smoker Smokeless Tobacco Use: No Alcohol Use: socially Drug Use: none Marital Status: Housing status: lives with family Occupational Status: employed Immunizations History of Influenza Vaccine: Yes Influenza Vaccine Date: Jun 06, 2011 History of Tetanus Vaccine?: Yes History of Pneumococcal: Yes Pneumococcal Date: Nov 29, 2010 History of Hepatitis B Vaccine: No Multi-Drug Resistant Organisms History of MDRO: No Allergies Coded Allergies: Loratadine (Verified Allergy, Unknown, rash, 12/11/16) Metronidazole (Verified Allergy, Unknown, SKIN LAWRENCE, 12/11/16) Montelukast (Verified Allergy, Unknown, HIVES, 12/11/16) Escitalopram (Verified Adverse Reaction, Unknown, INSOMNIA, 12/11/16) Home Medications Scheduled Aspirin (Aspirin Ec), 81 MG PO QAM Fluticasone Prop/Salmeterol (Advair Diskus 250/50 60 Dose), 1 PUFF INH BID Metformin Hcl (Glucophage Er), 750 MG PO BID Pravastatin Sodium (Pravastatin Sodium), 10 MG PO HS Propranolol La (Inderal La), 60 MG PO DAILY Topiramate (Topamax ), 25 MG PO BID [Doterra], 1 TAB PO QAM Scheduled PRN Albuterol Sulfate (Proair Respiclick), 2 PUFFS INH Q4H PRN for SOB/Wheezing Ipratropium-Albuterol (Duoneb), 1 TREATMENT INH Q4H PRN for SOB/Wheezing Review of Systems Constitutional: No chills, No fever, No sweats Eyes: No diplopia, No discharge, No redness ENT: No hearing loss, No nasal symptoms, No tinnitus, No trouble swallowing, No unusual epistaxis Respiratory: No cough, No dyspnea on exertion, No shortness of breath Cardiovascular: + chest pain, No edema, No orthopnea, No palpitations Abdomen: + nausea, No constipation, No diarrhea, No pain, No vomiting Musculoskeletal: No joint pain, No muscle pain Genitourinary - Female: No dysuria, No urinary frequency Neurologic: No memory loss, No numbness/tingling Endocrine: + problem reported (recently diagnosed as a diabetic, has lost 25 pounds since February 2016 with diet and exercise), No fatigue Integumentary: No itch, No rash Physical Exam Vital Signs Date Time Temp Pulse Resp B/P Pulse Ox O2 Delivery O2 Flow Rate FiO2 12/11/16 13:46 99 Room Air 12/11/16 12:57 45 20 156/74 99 Room Air 12/11/16 12:37 48 12/11/16 12:19 51 149/82 50 146/80 55 151/81 12/11/16 12:17 100 Room Air 12/11/16 11:54 36.9 51 18 146/84 99 Room Air General Appearance: WD/WN, no apparent distress, + obese, + pertinent finding ( flat affect, appears anxious) Head: normocephalic, atraumatic Eyes: PERRL, EOMI ENT: hearing grossly normal, pharynx normal, + pertinent finding (TMs unable to be visualized due to cerumen impaction) Neck: supple, no JVD Respiratory/Chest: chest non-tender, lungs clear, no respiratory distress, no accessory muscle use Cardiovascular: regular rate, rhythm, no murmur, normal peripheral pulses Abdomen/GI: normal bowel sounds, non tender, soft, no organomegaly Back: no CVA tenderness Extremities/Musculoskelatal: normal inspection, no calf tenderness, no pedal edema Neurologic/Psych: alert, oriented x 3, + pertinent finding (anxious, No pronator drift, finger to nose testing adequate, able to complete rapid alternating movements with hand, no strength discrepancies in the upper extremity, heel to white testing same on both extremities, slight weakness in the right lower extremity but still rated as a 5/5 in comparison to the left.) Skin: normal color, warm/dry Diagnostics Laboratory Results Results Past 24 Hours Test 12/11/16 12:10 12/11/16 12:50 Range/Units White Blood Count 6.98 4.8-10.8 K/uL Red Blood Count 4.46 4.2-5.4 M/uL Hemoglobin 13.5 12.0-16.0 g/dL Hematocrit 40.3 37-47 % Mean Corpuscular Volume 90.4 80-100 fL Mean Corpuscular Hemoglobin 30.3 25-34 pg Mean Corpuscular Hemoglobin Concent 33.5 32-36 g/dl Platelet Count 289 130-400 K/uL Mean Platelet Volume 11.2 7.4-10.4 fL Neutrophils (%) (Auto) 62.4 % Lymphocytes (%) (Auto) 28.9 % Monocytes (%) (Auto) 5.0 % Eosinophils (%) (Auto) 3.2 % Basophils (%) (Auto) 0.4 % Neutrophils # (Auto) 4.35 1.4-6.5 K/uL Lymphocytes # (Auto) 2.02 1.2-3.4 K/uL Monocytes # (Auto) 0.35 0.11-0.59 K/uL Eosinophils # (Auto) 0.22 0-0.5 K/uL Basophils # (Auto) 0.03 0-0.2 K/uL RDW Standard Deviation 42.3 36.4-46.3 fL RDW Coefficient of Variation 12.9 11.5-14.5 % Immature Granulocyte % (Auto) 0.1 % Immature Granulocyte # (Auto) 0.01 0.00-0.02 K/uL Sodium Level 141 136-145 mmol/L Potassium Level 4.0 3.5-5.1 mmol/L Chloride Level 106 98-107 mmol/L Carbon Dioxide Level 29 21-32 mmol/L Anion Gap 6.0 3-11 mmol/L Blood Urea Nitrogen 17 7-18 mg/dl Creatinine 1.00 0.60-1.20 mg/dl Est Creatinine Clear Calc Drug Dose 86.7 ml/min Estimated GFR () 76.1 Estimated GFR (Non- 65.6 BUN/Creatinine Ratio 17.2 10-20 Random Glucose 90 70-99 mg/dl Calcium Level 8.9 8.5-10.1 mg/dl Magnesium Level 2.1 1.8-2.4 mg/dl Total Bilirubin 0.3 0.2-1 mg/dl Aspartate Amino Transf (AST/SGOT) 6 15-37 U/L Alanine Aminotransferase (ALT/SGPT) 18 12-78 U/L Alkaline Phosphatase 95 45-117 U/L Total Protein 7.2 6.4-8.2 gm/dl Albumin 3.8 3.4-5.0 gm/dl Globulin 3.4 2.5-4.0 gm/dl Albumin/Globulin Ratio 1.1 0.9-2 Thyroid Stimulating Hormone (TSH) 0.974 0.300-4.500 uIu/ml Urine Color YELLOW Urine Appearance CLEAR CLEAR Urine pH 5.5 4.5-7.5 Urine Specific [place] 1.007 1.000-1.030 Urine Protein NEG NEG Urine Glucose (UA) NEG NEG Urine Ketones NEG NEG Urine Occult Blood NEG NEG Urine Nitrite NEG NEG Urine Bilirubin NEG NEG Urine Urobilinogen NEG NEG Urine Leukocyte Esterase NEG NEG Diagnostic Radiology None to review EKG EKG showing sinus bradycardia with HR=51. No ST wave inversions or signs of ischemic changes Impression Assessment and Plan This is a 51-year-old female with past medical history of bradycardia, asthma, complex migraine syndrome, diabetes mellitus, chronic bronchitis being admitted for observation for likely complex migraine with associated dizziness and nausea , and slight right lower extremity weakness. Complex migraine - Admit to telemetry for observation - We'll reduce the patient's propranolol from 60 mg to 30 mg in an attempt to correct bradycardia - Topamax was recently started during last admission, 25 mg twice a day, will increase this to 50 mg twice a day for now. Possible that this low dose and reduction of propranolol has not been able to alleviate the previous migraine symptoms. - Cerumen impaction possibly contributing to dizziness, and balance difficulties - flushed twice in the ED. - Patient without deficits on neurological exam: No pronator drift, finger to nose testing adequate, able to complete rapid alternating movements with hand, no strength discrepancies in the upper extremity, heel to white testing same on both extremities, slight weakness in the right lower extremity but still rated as a 5/5 in comparison to the left. - The patient with "complaints of on and off chest pain throughout the day today " - we will add a troponin to labs drawn in ED, we will trend these 2 more sets. EKG was reviewed showing sinus bradycardia, no ST wave inversions or signs of ischemic changes. History of Diabetes Mellitus II - Patient with a weight loss 25 pounds since February 2016 with diet and exercise - Hgb A1C checked during last admission = 5.8 - We'll use insulin sliding scale and Accu-Cheks before meals at bedtime for coverage Obesity: - Continue to encourage diet and exercise Asthma Chronic bronchitis -Stable, continue BLAST [employer]PER inhalers DVT prophylaxis: Teds, SCDs, Lovenox 40 mg subcutaneous CODE STATUS: Full code Disposition: Patient from home, discharged likely tomorrow. Level of Care Telemetry Advanced Directives Existing Living Will: No Existing Power of Laboratory Animal Care Veterinarian: No Resuscitation Status FULL RESUSCITATION VTE Prophylaxis VTE Risk Assessment Done? Y/N: Yes Risk Level: Very Low Given or contraindicated: Enoxaparin (Lovenox)SQ, T.E.D. Stockings, SCD's
[2016-12-11] MEDS ORDERED: LORAZEPAM 0.5 MG TAB PO PRN (14:30)
[2016-12-11] MEDS ORDERED: ONDANSETRON INJ 2 MG/ML 2 ML VIAL IV PRN (14:30)
[2016-12-11] MEDS ORDERED: ACETAMINOPHEN 325 MG TAB PO PRN (14:30)
[2016-12-11] MEDS ORDERED: ALBUT/IPRATROP 3MG/0.5MG NEB 3 ML VIAL INH PRN (14:30)
[2016-12-11] MEDS ORDERED: PROCHLORPERAZINE MALEATE 5 MG TAB PO PRN (14:30)
[2016-12-11] MEDS ORDERED: ALBUTEROL HFA INHALER 8.5 GM INH PRN (14:30)
[2016-12-11] MEDS ORDERED: POLYETHYLENE (MIRALAX) 17 GM PACK PO PRN (14:30)
[2016-12-11] MEDS ORDERED: NITROGLYCERIN 0.4 MG SL PER TAB CHARGE SL PRN (14:30)
[2016-12-11] MEDS ORDERED: IV FLUIDS COMPLETED PRN (14:45)
[2016-12-11 14:55] LABS: PARTIAL THROMBOPLASTIN RATIO 1.2; PROTHROMBIN TIME (PATIENT) 10.5 SECONDS (9.0-12.0)
[2016-12-11] MEDS ORDERED: MECLIZINE HCL 25 MG TAB PO PRN (15:15)
[2016-12-11 15:35] VITALS: BP 131/83; PULSE 48; TEMP 37; O2SAT 100
[2016-12-11 16:00] VITALS: O2SAT 100
[2016-12-11 19:43] VITALS: BP 119/80; PULSE 55; TEMP 37; O2SAT 95
[2016-12-11] MEDS: PRAVASTATIN SOD 10 MG TAB PO SCH (20:32)
[2016-12-11] MEDS: FLUTICASONE/SALMETEROL 250/50 (ADVAIR) 14 PUFF/1 INHALER INH SCH (20:32)
[2016-12-11] MEDS: ENOXAPARIN 40 MG/0.4 ML SYR SC SCH (20:32)
[2016-12-11] MEDS ORDERED: TOPIRAMATE 25 MG TAB PO SCH ×2 (21:00)
[2016-12-11 23:16] VITALS: BP 104/70; PULSE 57; TEMP 36.6; O2SAT 98
[2016-12-12] VITALS (8 sets, daily range): BP systolic 96–128; BP diastolic 58–82; PULSE 53–60; TEMP 36.4–36.8; O2SAT 95–99
[2016-12-12 04:19] LABS: BASO % 0.2 %; BASO ABS # 0.01 K/uL (0-0.2); COMPLETE YES; EOS % 2.7 %; HEMATOCRIT 39.9 % (37-47); IG% 0.2 %; LYMPH ABS # 1.96 K/uL (1.2-3.4); MEAN CELL VOLUME 90.9 fL (80-100); MEAN CORPUSCULAR HEMOGLOBIN 30.3 pg (25-34); MEAN CORPUSCULAR HGB CONC 33.3 g/dl (32-36); MEAN PLATELET VOLUME 11.2 fL (7.4-10.4); NEUT % 53.9 %; PLATELET COUNT 229 K/uL (130-400); RED BLOOD COUNT 4.39 M/uL (4.2-5.4); WHITE BLOOD COUNT 5.16 K/uL (4.8-10.8)
[2016-12-12 04:42] LABS: BLOOD UREA NITROGEN 16 mg/dl (7-18); BUN/CREATININE RATIO 14.6 (10-20); CALCIUM 8.3 mg/dl (8.5-10.1); CARBON DIOXIDE 31 mmol/L (21-32); CHLORIDE 110 mmol/L (98-107); GLUCOSE 98 mg/dl (70-99); POTASSIUM 4.1 mmol/L (3.5-5.1); SODIUM 144 mmol/L (136-145)
[2016-12-12] MEDS: FLUTICASONE/SALMETEROL 250/50 (ADVAIR) 14 PUFF/1 INHALER INH SCH ×2 (07:52→21:50)
[2016-12-12] MEDS: ASPIRIN 81 MG ECTAB PO SCH (07:52)
[2016-12-12] MEDS ORDERED: PROPRANOLOL HCL 60 MG LA CAP PO SCH (09:00)
[2016-12-12] MEDS: PROPRANOLOL HCL 20 MG TAB PO SCH ×2 (09:00→21:51)
[2016-12-12] MEDS ORDERED: DIVALPROEX SODIUM 250 MG DELAY REL TAB PO ONE (09:54)
--- NOTE | 2016-12-12 13:21 | Progress Note ---
Subjective Date of Service: Dec 12, 2016. Subjective Pt evaluation today including: conversation w/ patient, physical exam, chart review, lab review, review of studies, review of inpatient medication list Reports having a migraine, frontal tenderness and dizziness States discomfort only 1/10 Problem List Medical Problems: (1) Chronic bronchitis Status: Chronic (2) CVA (cerebral vascular accident) Status: Acute (3) Impacted cerumen of both ears Status: Acute (4) Left sided chest pain Status: Acute (5) Lower abdominal pain Status: Acute (6) Migraine variant Status: Acute (7) Right sided weakness Status: Acute (8) Stroke-like symptoms Status: Acute Review of Systems Constitutional: No chills, No fever Respiratory: No cough, No dyspnea on exertion, No shortness of breath, No sputum, No wheezing Cardiac: No chest pain, No orthopnea Abdomen: No constipation, No diarrhea, No nausea, No pain, No vomiting Musculoskeletal: No joint pain, No muscle pain Female : No dysuria, No urinary frequency Objective Vital Signs Date Time Temp Pulse Resp B/P Pulse Ox O2 Delivery O2 Flow Rate FiO2 12/12/16 12:05 Room Air 12/12/16 11:25 36.8 53 22 107/68 99 Room Air 12/12/16 08:00 Room Air 12/12/16 07:32 36.6 59 20 96/65 97 Room Air 12/12/16 04:00 Room Air 12/12/16 03:57 36.5 58 18 98/64 98 Room Air 12/11/16 23:59 Room Air 12/11/16 23:16 36.6 57 18 104/70 98 Room Air 12/11/16 20:00 Room Air 12/11/16 19:43 37.0 55 20 119/80 95 Room Air 12/11/16 16:00 100 Room Air 12/11/16 15:35 37.0 48 16 131/83 100 12/11/16 15:19 18 118/58 99 12/11/16 14:31 49 18 127/85 100 Room Air 12/11/16 13:46 99 Room Air Physical Exam General Appearance: WD/WN, + mild distress Neck: supple, no adenopathy Respiratory/Chest: lungs clear, normal breath sounds Cardiovascular: no edema, no gallop Abdomen: non tender, soft Neurologic/Psychiatric: alert, oriented x 3 Laboratory Results Last 24 Hours Test 4/18/17 19:45 12/12/16 04:00 Troponin I < 0.015 ng/ml < 0.015 ng/ml White Blood Count 5.16 K/uL Red Blood Count 4.39 M/uL Hemoglobin 13.3 g/dL Hematocrit 39.9 % Mean Corpuscular Volume 90.9 fL Mean Corpuscular Hemoglobin 30.3 pg Mean Corpuscular Hemoglobin Concent 33.3 g/dl Platelet Count 229 K/uL Mean Platelet Volume 11.2 fL Neutrophils (%) (Auto) 53.9 % Lymphocytes (%) (Auto) 38.0 % Monocytes (%) (Auto) 5.0 % Eosinophils (%) (Auto) 2.7 % Basophils (%) (Auto) 0.2 % Neutrophils # (Auto) 2.78 K/uL Lymphocytes # (Auto) 1.96 K/uL Monocytes # (Auto) 0.26 K/uL Eosinophils # (Auto) 0.14 K/uL Basophils # (Auto) 0.01 K/uL RDW Standard Deviation 43.4 fL RDW Coefficient of Variation 13.1 % Immature Granulocyte % (Auto) 0.2 % Immature Granulocyte # (Auto) 0.01 K/uL Sodium Level 144 mmol/L Potassium Level 4.1 mmol/L Chloride Level 110 mmol/L Carbon Dioxide Level 31 mmol/L Anion Gap 3.0 mmol/L Blood Urea Nitrogen 16 mg/dl Creatinine 1.10 mg/dl Est Creatinine Clear Calc Drug Dose 78.8 ml/min Estimated GFR () 67.8 Estimated GFR (Non- 58.5 BUN/Creatinine Ratio 14.6 Random Glucose 98 mg/dl Calcium Level 8.3 mg/dl Chemistry Specimen Hemolysis Assessment and Plan This is a 51-year-old female with past medical history of bradycardia, asthma, complex migraine syndrome, diabetes mellitus, chronic bronchitis being admitted for observation for likely complex migraine with associated dizziness and nausea , and slight right lower extremity weakness. Complex migraine - Admit to telemetry for observation - We'll reduce the patient's propranolol from 60 mg to 30 mg in an attempt to correct bradycardia - Topamax was recently started during last admission, dced due to nausea, neurology consulted for med regimen for migraines - Cerumen impaction possibly contributing to dizziness, and balance difficulties - flushed twice in the ED. - Patient without deficits on neurological exam: No pronator drift, finger to nose testing adequate, able to complete rapid alternating movements with hand, no strength discrepancies in the upper extremity, heel to white testing same on both extremities, slight weakness in the right lower extremity but still rated as a 5/5 in comparison to the left. History of Diabetes Mellitus II - Patient with a weight loss 25 pounds since February 2016 with diet and exercise - Hgb A1C checked during last admission = 5.8 - We'll use insulin sliding scale and Accu-Cheks before meals at bedtime for coverage Obesity: - Continue to encourage diet and exercise Asthma Chronic bronchitis -Stable, continue CLIENT [employer] inhalers DVT prophylaxis: Teds, SCDs, Lovenox 40 mg subcutaneous CODE STATUS: Full code
[2016-12-12] MEDS: DIVALPROEX SODIUM 250 MG DELAY REL TAB PO SCH ×2 (21:00→21:49)
[2016-12-12] MEDS: PRAVASTATIN SOD 10 MG TAB PO SCH (21:49)
[2016-12-12] MEDS: ENOXAPARIN 40 MG/0.4 ML SYR SC SCH (21:50)
[2016-12-13 07:10] LABS: BASO % 0.4 %; BASO ABS # 0.02 K/uL (0-0.2); COMPLETE YES; EOS % 2.7 %; HEMATOCRIT 44.1 % (37-47); IG% 0.2 %; LYMPH % 25.7 %; LYMPH ABS # 1.43 K/uL (1.2-3.4); MEAN CELL VOLUME 91.3 fL (80-100); MEAN CORPUSCULAR HEMOGLOBIN 30.4 pg (25-34); MEAN CORPUSCULAR HGB CONC 33.3 g/dl (32-36); MEAN PLATELET VOLUME 11.2 fL (7.4-10.4); MONO % 6.5 %; NEUT % 64.5 %; PLATELET COUNT 274 K/uL (130-400); RED BLOOD COUNT 4.83 M/uL (4.2-5.4); WHITE BLOOD COUNT 5.56 K/uL (4.8-10.8)
[2016-12-13 07:11] VITALS: BP 102/70; PULSE 53; TEMP 36.6; O2SAT 96
[2016-12-13 07:49] LABS: BUN/CREATININE RATIO 16.3 (10-20); CALCIUM 8.9 mg/dl (8.5-10.1); CREATININE 0.87 mg/dl (0.60-1.20)
[2016-12-13] MEDS: FLUTICASONE/SALMETEROL 250/50 (ADVAIR) 14 PUFF/1 INHALER INH SCH (07:56)
[2016-12-13] MEDS: PROPRANOLOL HCL 20 MG TAB PO SCH (07:56)
[2016-12-13] MEDS: ASPIRIN 81 MG ECTAB PO SCH (07:57)
[2016-12-13] MEDS: DIVALPROEX SODIUM 250 MG DELAY REL TAB PO SCH (07:59)
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
[2016-12-13] MEDS ORDERED: PROPRANOLOL HCL 20 MG TAB PO SCH (09:00)
[2016-12-13 10:18] VITALS: BP 112/80; PULSE 55
[2016-12-13] MEDS ORDERED: PRED10TA PO (10:37)
[2016-12-13] MEDS ORDERED: TOPI50TA24 PO (10:37)
--- NOTE | 2016-12-13 10:40 | Discharge Instructions ---
Discharge Instructions Date of Service Dec 13, 2016. Admission Reason for Admission: Dizziness,Complex Migraine,Chest Pain Discharge Discharge Diagnosis / Problem: Dizziness, migraine Discharge Goals Goal(s): Decrease discomfort, Improve function, Increase independence, Improve disease control, Learn about illness, Diagnostic testing, Therapeutic intervention, Prevent Disease Progression Activity Recommendations Activity Limitations: resume your previous activity Exercise/Sports Limitations: none Shower/Bathe: no limitations . Instructions / Follow-Up Instructions / Follow-Up Patient to be discharged home Please stop taking inderal due to low pulse Please take increased dose of topamax 50 mg twice a day (can double up dose of 25 mg tablets at home) Prescription sent for prednisone taper, please take as directed Follow up with Dr Ceja in 1-2 weeks Current Hospital Diet Patient's current hospital diet: AHA Diet (Heart Healthy) Discharge Diet Recommended Diet: AHA Diet (Heart Healthy) Pending Studies Studies pending at discharge: no Medical Emergencies . Who to Call and When: Medical Emergencies: If at any time you feel your situation is an emergency, please call 911 immediately. . Non-Emergent Contact Non-Emergency issues call your: Primary Care Provider Call Non-Emergent contact if: your pain is worsening . . "Provider Documentation" section prepared by Harsha Romero. . VTE Core Measure Inpt VTE Proph given/why not?: Enoxaparin (Lovenox)NADINE, T.EFelipe. Gwen, SCD's
[2016-12-13 11:31] VITALS: BP 112/80; PULSE 55; TEMP 36.6; O2SAT 96
--- NOTE | 2016-12-13 11:59 | Discharge Summary ---
Discharge Summary Date of Service Dec 13, 2016. Discharge Summary Admission Date: Dec 11, 2016 at 14:28 Discharge Date: Dec 13, 2016 Discharge Disposition: Home Principal Diagnosis: Migraine, dizziness Problems/Secondary Diagnoses: (1) Chronic bronchitis Status: Chronic Immunizations: Have You Had Influenza Vaccine: Yes Influenza Vaccine Date: Jun 06, 2011 History of Tetanus Vaccine?: Yes History of Pneumococcal: Yes Pneumococcal Date: Nov 29, 2010 History of Hepatitis B Vaccine: No Consultations: Neurology Medication Reconciliation New Medications: Prednisone (Prednisone) 10 Mg Tab 10 MG PO UD for 5 Days, #15 TAB Take 5 pills on day 1 take 4 pills on day 2 take 3 pills on day 3 take 2 pills on day 4 take 1 pill on day 5, then stop Topiramate (Topamax) 50 Mg Tab 1 TAB PO BID for 30 Days, #60 TAB Continued Medications: Albuterol Sulfate (Proair Respiclick) 108 Mcg/Act Aer 2 PUFFS INH Q4H PRN for SOB/Wheezing Aspirin (Aspirin Ec) 81 Mg Tab 81 MG PO QAM Fluticasone Prop/Salmeterol (Advair Diskus 250/50 60 Dose) 1 Ea Aerp 1 PUFF INH BID, INHALER Ipratropium-Albuterol (Duoneb) 3 Ml Nebu 1 TREATMENT INH Q4H PRN for SOB/Wheezing Metformin Hcl (Glucophage Er) 750 Mg Tab 750 MG PO BID Pravastatin Sodium (Pravastatin Sodium) 10 Mg Tab 10 MG PO HS [Doterra] () 1 TAB PO QAM Discontinued Medications: Propranolol La (Inderal La) 60 Mg Capcr 60 MG PO DAILY, CAP Topiramate (Topamax ) 25 Mg Tab 25 MG PO BID, TAB Discharge Exam Review of Systems: Constitutional: No chills, No fever Eyes: No eye pain, No worsening of vision ENT: No hearing loss, No sore throat, No tinnitus Respiratory: No cough, No sputum Cardiovascular: No chest pain, No orthopnea Abdomen: No nausea, No pain, No vomiting Musculoskeletal: No joint pain, No muscle pain Genitourinary - Female: No dysuria, No urinary frequency, No urinary urgency Neurologic: No paralysis, No weakness Physical Exam: General Appearance: WD/WN, no apparent distress Neck: supple, no adenopathy Respiratory/Chest: lungs clear, normal breath sounds Cardiovascular: no edema, no gallop Abdomen / GI: non tender, soft Neurologic/Psychiatric: alert, oriented x 3 Hospital Course This is a 51-year-old female with past medical history of bradycardia, asthma, complex migraine syndrome, diabetes mellitus, chronic bronchitis being admitted for observation for likely complex migraine with associated dizziness and nausea , and slight right lower extremity weakness. Complex migraine - Admitted to telemetry for observation - Attempted to wean propranolol further to correct bradycardia, however pulse dropped into 50 so dced inderal completely on discharge - Topamax was recently started during last admission, neurology consulted for med regimen for migraines, discharged on 50 mg PO BID -Prednisone taper given on discharge, pt reports no migraines upon discharge - Patient without deficits on neurological exam: No pronator drift, finger to nose testing adequate, able to complete rapid alternating movements with hand, no strength discrepancies in the upper extremity, heel to white testing same on both extremities, slight weakness in the right lower extremity but still rated as a 5/5 in comparison to the left. -F/U with Dr Ceja in 1-2 weeks History of Diabetes Mellitus II - Patient with a weight loss 25 pounds since February 2016 with diet and exercise - Hgb A1C checked during last admission = 5.8 - We'll use insulin sliding scale and Accu-Cheks before meals at bedtime for coverage Obesity: - Continue to encourage diet and exercise Asthma Chronic bronchitis -Stable, continue [employer] inhalers DVT prophylaxis: Teds, SCDs, Lovenox 40 mg subcutaneous CODE STATUS: Full code Total Time Spent: Greater than 30 minutes This includes examination of the patient, discharge planning, medication reconciliation, and communication with other providers. Discharge Instructions Please refer to the electronic Patient Visit Report (Discharge Instructions) for additional information. Additional Copies To Mark Kumar M.D.
== END 2016-12-13 11:45 | disposition home or self-care (01) ==
LOC: ENRESERVTM → ENRESERVDT → C.EDB 11:53 → C.2T 14:28 → CANBEDREQ 16:26 → C.MS2W 12-12 16:44
PROVIDERS: ADMIT Internal Medicine; ATTEND Hospitalist
DX: G43.409 Hemiplegic migraine, not intractable, without status migrainosus (principal); R07.9 Chest pain, unspecified; J44.9 Chronic obstructive pulmonary disease, unspecified; R00.1 Bradycardia, unspecified; E11.9 Type 2 diabetes mellitus without complications; E66.9 Obesity, unspecified; Z79.82 Long term (current) use of aspirin; Z86.73 Personal history of transient ischemic attack (TIA), and cerebral infarction without residual deficits; Z90.710 Acquired absence of both cervix and uterus; Z82.49 Family history of ischemic heart disease and other diseases of the circulatory system; Z83.3 Family history of diabetes mellitus

== ENCOUNTER → 2017-01-22 | Outpatient (CLI) | payer BC ==
[~2017-01-22] MED LIST changes: -PROP80CA7 PO; -TPM25 PO
--- NOTE | 2017-01-22 16:39 | MAMMOGRAPHY REPORT ---
BILATERAL DIGITAL SCREENING MAMMOGRAM TOMOSYNTHESIS WITH CAD: 01/22/2017 CLINICAL HISTORY: Routine screening. Patient has no complaints. TECHNIQUE: Breast tomosynthesis in addition to standard 2D mammography was performed. Current study was also evaluated with a Computer Aided Detection (CAD) system. COMPARISON: Comparison is made to exams dated: 01/19/2016 mammogram, 01/18/2015 mammogram, 01/14/2014 mammogram, 01/09/2013 mammogram, 12/13/2011 mammogram, and 10/24/2005 mammogram - [facility]. BREAST COMPOSITION: There are scattered areas of fibroglandular density in both breasts. FINDINGS: There are a few stable punctate microcalcifications in the right breast. No new suspiciou s mass, architectural distortion or cluster of microcalcifications is seen. IMPRESSION: ACR BI-RADS CATEGORY 1: NEGATIVE There is no mammographic evidence of malignancy. A 1 year screening mammogram is recommended. The p atient will receive written notification of the results. Approximately 10% of breast cancers are not detected with mammography. A negative mammographic repor t should not delay biopsy if a clinically suggestive mass is present. Dana Ace M.D. ay/:01/22/2017 16:06:54 Automotive Teacher: Patricia FAM(R)(M), [facility] letter sent: Normal 1/2 BI-RADS Code: ACR BI-RADS Category 1: Negative
== END | disposition home or self-care (01) ==
LOC: C.MAMM 08:23
PROVIDERS: ATTEND Family Medicine
DX: Z12.31 Encounter for screening mammogram for malignant neoplasm of breast (principal)